=== PATIENT | female | born 1930 | race Two or more races ===

== ENCOUNTER 2017-02-24 10:53 | Outpatient (CLI) | payer MEDICARE, OTHER ==
[~2017-02-24 10:53] MED LIST: DICL50TA9 PO; DOXY100C2 PO; GABA-532 PO; GABA-534 PO; HYDR25TA4 PO; OMEP40CA37 PO; TEMA7.5C12 PO; TRAM50TA2 PO
== END 2017-02-24 23:59 | disposition home or self-care (01) ==
LOC: RAD 10:53
PROVIDERS: ATTEND Legal Medicine
DX: M47.892 Other spondylosis, cervical region (principal); M25.78 Osteophyte, vertebrae; Z88.8 Allergy status to other drugs, medicaments and biological substances
CPT/HCPCS: 72040-TC

== ENCOUNTER 2018-03-24 09:31 | Emergency (ER) | payer MEDICARE, MEDICAID ==
[~2018-03-24] VITALS: Ht 154.9 cm; Wt 67.6 kg
--- NOTE | 2018-03-24 09:48 | NUR ---
[id number] FROM HOME: LEFT ARM PAIN x 2 DAYS. DENIES RECENT FALLS/INJURIES.
[2018-03-24] MEDS ORDERED: HYDROCODONE/APAP 10/325MG 1 EA TABLET ONE (09:53)
[2018-03-24] MEDS ORDERED: HYDROCODONE/APAP 10/325MG 1 EA TABLET PO ONE (10:00)
--- NOTE | 2018-03-24 11:50 | NUR ---
CALLED [facility] FOR TRANSPORT BACK HOME, ETA 1200, TRIP #[id number]
[2018-03-24 12:07] VITALS: BP 142/81
== END 2018-03-24 12:09 | disposition home or self-care (01) ==
LOC: ER 09:33
DX: M25.422 Effusion, left elbow (principal); M19.012 Primary osteoarthritis, left shoulder; M19.022 Primary osteoarthritis, left elbow; E11.9 Type 2 diabetes mellitus without complications; I10 Essential (primary) hypertension; M85.80 Other specified disorders of bone density and structure, unspecified site; Z96.653 Presence of artificial knee joint, bilateral; Z60.2 Problems related to living alone; Z79.899 Other long term (current) drug therapy
CPT/HCPCS: 73030-TC; 73080-TC; A4606; Z7610

== ENCOUNTER 2018-10-25 15:19 | Emergency (ER) | payer MEDICARE, MEDICAID ==
[~2018-10-25] VITALS: Ht 124.5 cm; Wt 61.2 kg
--- NOTE | 2018-10-25 15:36 | NUR ---
PT BIB SELF FROM HOME, C/O BILATERAL EYE IRRITATION FROM THE HAIR DYE SOLUTION, PT IS AAOX4, NOT IN RESPIRATORY DISTRESS, KEPT RESTED AND COMFORTABLE.
[2018-10-25] MEDS ORDERED: IV NS 0.9% 1,000 ML BAG IV ONE (16:00)
[2018-10-25] MEDS ORDERED: TETRACAINE HCL/PF 0.5% UD 2 ML BOTTLE EACHEYE ONE (16:00)
[2018-10-25] MEDS ORDERED: DIPHENHYDRAMINE HCL 12.5 MG/5 ML UDC PO ONE (16:00)
[2018-10-25] MEDS ORDERED: TETRACAINE HCL/PF 0.5% UD 2 ML BOTTLE ONE (16:04)
[2018-10-25] MEDS ORDERED: diphenhydrAMINE HCL ELIX 25 MG/10 ML UDC ONE (16:05)
[2018-10-25] MEDS ORDERED: ACETAMINOPHEN ES 500 MG TABLET ONE (16:46)
[2018-10-25] MEDS ORDERED: ACETAMINOPHEN ES 500 MG TABLET PO ONE (17:00)
--- NOTE | 2018-10-25 17:05 | NUR ---
Patient discharged to home in stable condition. Written and verbal after care instructions given. Patient verbalizes understanding of instruction.
[2018-10-25 17:07] VITALS: BP 126/19
== END 2018-10-25 17:07 | disposition home or self-care (01) ==
LOC: ER 15:21
DX: H10.213 Acute toxic conjunctivitis, bilateral (principal); I10 Essential (primary) hypertension; E11.9 Type 2 diabetes mellitus without complications; Z98.890 Other specified postprocedural states; Z60.2 Problems related to living alone; Z79.899 Other long term (current) drug therapy
CPT/HCPCS: 99283; A4606; J7030 ×2; Q0163 ×2

== ENCOUNTER 2019-04-27 14:10 | Inpatient (IN) | payer MEDICARE, MEDICAID ==
[~2019-04-27] VITALS: Ht 162.6 cm; Wt 70.1 kg
--- NOTE | 2019-04-27 14:35 | NUR ---
BIB RA C/O L HIP PAIN WITH SHORTENING S/P TRIP AND FALL YESTERDAY. PATIENT A/OX3, FARSI SPEAKING, ATTACHED TO THE MONITOR. KEPT COMFORTABLE.
[2019-04-27] MEDS ORDERED: ACET-868 PO (14:42)
[2019-04-27] MEDS ORDERED: ZOLP5TAB2 PO (14:42)
[2019-04-27 14:55] LABS: BASOPHILS # (AUTO) 0.1 /CMM (0.0-0.2); BASOPHILS % (AUTO) 0.9 % (0.0-2.0); EOSINOPHILS % (AUTO) 3.1 % (0.0-6.0); HEMATOCRIT 31 % (33-45); HEMOGLOBIN 10.8 g/dL (11.5-14.8); LYMPHOCYTES # (AUTO) 0.8 /CMM (0.8-4.8); LYMPHOCYTES % (AUTO) 12.1 % (20.0-44.0); MEAN CORPUSCULAR HGB CONC 34 g/dl (31.0-36.0); MEAN CORPUSCULAR VOLUME 94 fL (82-100); MONOCYTES # (AUTO) 0.4 /CMM (0.1-1.30); MONOCYTES % (AUTO) 6.2 % (2.0-12.0); NEUTROPHILS # (AUTO) 5.2 /CMM (1.8-8.9); NEUTROPHILS % (AUTO) 77.7 % (43.0-81.0); PLATELET COUNT (AUTO) 106 /CMM (150-450); RED BLOOD CELL COUNT(AUTO) 3.33 MIL/uL (4.0-5.2); WHITE BLOOD COUNT (AUTO) 6.7 K/uL (4.3-11.0)
[2019-04-27 15:02] LABS: CALCIUM, SERUM 8.8 mg/dL (8.5-10.1); CARBON DIOXIDE 28 mmol/L (21-32); CHLORIDE 101 mmol/L (98-107); GLUCOSE 129 mg/dL (74-106); POTASSIUM 4.2 mmol/L (3.5-5.1); SODIUM SERUM 135 mmol/L (136-145); UREA NITROGEN, BLOOD 17 mg/dL (7-18)
--- NOTE | 2019-04-27 15:42 | NUR ---
FAMILY AT BEDSIDE REQUESTING FOR PATIENT TO BE TRANSFERRED TO [facility]. DR. MCINTOSH MADE AWARE.
[2019-04-27] MEDS ORDERED: MORPHINE SULFATE INJ 4 MG/ML DISP.SYRIN ONE (16:50)
--- NOTE | 2019-04-27 16:58 | NUR ---
ADMIT 322-2 M/S
[2019-04-27] MEDS ORDERED: MORPHINE SULFATE INJ 2 MG/ML DISP.SYRIN IV ONE (17:00)
--- NOTE | 2019-04-27 17:12 | NUR ---
PER BARBARA AT [facility] IF PT HAS ACCEPTING MD, THEY WILL PUT IN REQUEST FOR TRANSFER. FAXED FACESHEET TO [phone].
[2019-04-27] MEDS ORDERED: MAGNESIUM HYDROXIDE 30 ML UDC PO PRN (18:30)
[2019-04-27] MEDS ORDERED: MAG HYDROX/AL HYDROX/SIMETH 30 ML UDC PO PRN (18:30)
[2019-04-27] MEDS ORDERED: ONDANSETRON HCL/PF 4 MG/2 ML VIAL IVP PRN (18:30)
[2019-04-27] MEDS ORDERED: ACETAMINOPHEN 325 MG TABLET PO PRN (18:30)
[2019-04-27] MEDS ORDERED: ZOLPIDEM TARTRATE 5 MG TABLET PO PRN (18:30)
[2019-04-27] MEDS ORDERED: Z GUARD REMEDY 2 OZ OINT TP PRN (18:30)
--- NOTE | 2019-04-27 18:50 | NUR ---
SERA RUTH [phone]-----> TO CHEMO BELLAMY
--- NOTE | 2019-04-27 18:56 | NUR ---
REPORT GIVEN TO MARY GRACE AHUMADA.
--- NOTE | 2019-04-27 19:09 | NUR ---
DAUGHTER ILYA MADE AWARE.
--- NOTE | 2019-04-27 19:16 | NUR ---
PT WAS SENT TO TO UNIT UPON ENDORSEMENT. PT TRANSPORTED TO UNIT BY EMT AT BEDSIDE. NAD NOTED DURTING TRANSPORT.
[2019-04-27 19:20] VITALS: BP 142/67
--- NOTE | 2019-04-27 19:25 | NUR ---
CLIENT PROFESSIONAL NOTES PATIENT ARRIVED ON THE UNIT AT 1917 VIA GURNEY. VITAL SIGNS UPON ADMISSION: 142/67, P86, RESP 18, TEMP 99.0 F, O2 SAT 96%. WEIGHT 154.7. BLE EDEMA. REST OF SKIN IS INTACT. PAIN 7 OUT OF 10 ON LEFT HIP. NO ACUTE DISTRESS OR SOB NOTED. WILL CONTINUE TO MONITOR PATIENT. AWAITING ADMISSION ORDERS.
[2019-04-27 20:00] VITALS: BP 142/67
[2019-04-27] MEDS: HYDROCODONE/APAP 5/325MG 1 EACH TABLET PO PRN (21:26)
[2019-04-27] MEDS: GABAPENTIN 300 MG CAPSULE PO SCH (21:56)
--- NOTE | 2019-04-28 00:53 | NUR ---
RN CLOSING NOTES PATIENT IS RESTING IN BED, COMFORTABLY. NO ACUTE CHANGES THROUGHOUT MY SHIFT. NO SIGNS OF RESPIRATORY DISTRESS, NO SIGNS OF SOB. NO SIGNS OF FACIAL GRIMACING OR DISCOMFORT INDICATING PAIN AT THIS TIME. IV SITE ON RIGHT HAND INTACT AND PATENT. VITALS STABLE. SAFETY PRECAUTIONS IMPLEMENTED; CALL LIGHT WITHIN REACH, BED LOW, BED LOCKED, SIDE RAILS UP X2. ENDORSED CARE TO ZITA HART, FOR KIMBERLY.
--- NOTE | 2019-04-28 01:26 | NUR ---
RN OPEN NOTES RECEIVED PATIENT RESTING IN BED, EASILY AROUSABLE. A/OX4. NO SIGNS OF DISTRESS OR DISCOMFORT. BREATHING EVEN AND UNLABORED. IV ACCESS IN R HAND, PATENT AND INTACT, NO SIGNS OF REDNESS OR INFILTRATION. DENIES ANY PAIN AT THIS TIME. BED IN LOW LOCKED POSITION WITH SIDE RAILS X2. CALL LIGHT WITHIN REACH. WILL CONTINUE TO MONITOR.
[2019-04-28 06:25] LABS: ALANINE AMINOTRANSFERASE 16 U/L (12-78); ALBUMIN 3.2 g/dL (3.4-5.0); ALKALINE PHOSPHATASE 53 U/L (46-116); ASPARTATE AMINOTRANSFERASE 15 U/L (15-37); BILIRUBIN,TOTAL 0.9 mg/dL (0.2-1.0); CARBON DIOXIDE 32 mmol/L (21-32); CHLORIDE 100 mmol/L (98-107); CREATININE 0.9 mg/dL (0.6-1.3); GLUCOSE 101 mg/dL (74-106); MAGNESIUM 1.6 mg/dL (1.8-2.4); PHOSPHORUS 4.2 mg/dL (2.5-4.9); POTASSIUM 4.1 mmol/L (3.5-5.1); SODIUM SERUM 137 mmol/L (136-145); TOTAL PROTEIN, SERUM 6.1 g/dL (6.4-8.2); UREA NITROGEN, BLOOD 15 mg/dL (7-18)
[2019-04-28 06:28] LABS: CHOLESTEROL 188 mg/dL (<200); HDL CHOLESTEROL 43 mg/dL (40-60); LDL 118 mg/dL (0-99); TRIGLYCERIDES 147 mg/dL (30-150)
[2019-04-28 06:30] LABS: BASOPHILS # (AUTO) 0.1 /CMM (0.0-0.2); BASOPHILS % (AUTO) 1.1 % (0.0-2.0); EOSINOPHILS % (AUTO) 6.2 % (0.0-6.0); HEMATOCRIT 29 % (33-45); LYMPHOCYTES # (AUTO) 0.9 /CMM (0.8-4.8); LYMPHOCYTES % (AUTO) 19.3 % (20.0-44.0); MEAN CORPUSCULAR HGB CONC 35 g/dl (31.0-36.0); MEAN CORPUSCULAR VOLUME 95 fL (82-100); MONOCYTES # (AUTO) 0.4 /CMM (0.1-1.30); MONOCYTES % (AUTO) 8.1 % (2.0-12.0); NEUTROPHILS # (AUTO) 3.1 /CMM (1.8-8.9); NEUTROPHILS % (AUTO) 65.3 % (43.0-81.0); PLATELET COUNT (AUTO) 94 /CMM (150-450); RED BLOOD CELL COUNT(AUTO) 3.05 MIL/uL (4.0-5.2); WHITE BLOOD COUNT (AUTO) 4.8 K/uL (4.3-11.0)
--- NOTE | 2019-04-28 06:55 | NUR ---
RN CLOSING NOTES PATIENT AWAKE IN BED. A/OX4. NO SIGNS OF DISTRESS OR DISCOMFORT. BREATHING EVEN AND UNLABORED. STATES PAIN IN L LEG IS 8/10 BUT DENIES ANY PAIN MEDS AT THIS TIME. PT STATES SHE WANTS TO TAKE THE MED AFTER SHE HAS BREAKFAST. IV ACCESS IN R HAND, PATENT AND INTACT, NO SIGNS OF REDNESS OR INFILTRATION. ALL NEEDS MET. NO SIGNIFICANT CHANGES THROUGH THE NIGHT. BED IN LOW LOCKED POSITION WITH SIDE RAILS X2. CALL LIGHT WITHIN REACH. WILL ENDORSE TO AM SHIFT FOR KIMBERLY.
--- NOTE | 2019-04-28 07:38 | NUR ---
MS/RN OPENING NOTE PATIENT IN BED IN STABLE CONDITION. A/O X 3. NO SIGNS OF ACUTE DISTRESS. COMPLAIN OF PAIN TO LEFT LEG, PER PATIENT SHE WANTS NORCO WITH OR AFTER BREAKFAST TO AVOID UPSETTING HER STOMACH. AWAITING ORTHO CONSULT WILL FOLLOW UP. ALL NEEDS ATTENDED TO. CALL LIGHT IN REACH. WILL CONTINUE TO MONITOR TO ENSURE SAFETY.
[2019-04-28 08:00] VITALS: BP 166/74
[2019-04-28] MEDS: PANTOPRAZOLE 40 MG TABLET.DR PO SCH (08:25)
[2019-04-28] MEDS: HYDROCODONE/APAP 5/325MG 1 EACH TABLET PO PRN ×3 (08:25→20:44)
[2019-04-28 09:53] LABS: BAND % (MANUAL) 3 % (0.0-5.0); EOSINOPHILS % (MANUAL) 8 % (0-4); LYMPHOCYTES % (MANUAL) 22 % (16-48); MONOCYTES % (MANUAL) 3 % (0-11.0); NEUTROPHILS % (MANUAL) 64 (42-76)
[2019-04-28] MEDS: Magnesium 1GM/D5W 100ML PREMIX 100 ML IV SCH ×2 (11:21→12:21)
--- NOTE | 2019-04-28 12:28 | NUR ---
MS/RN SEEN BY DR MIA REICH WITH ORDER FOR VENOUS DOPPLER OF BILATERAL LOWER EXTREMITY TODAY. NOTED AND CARRIED OUT. RES AND RP AWARE.
[2019-04-28 16:00] VITALS: BP 166/72
[2019-04-28 16:37] VITALS: BP 109/73
--- NOTE | 2019-04-28 18:17 | NUR ---
MS/RN CLOSING NOTE PATIENT IN BED IN STABLE CONDITION. A/O X 4. NO SIGNS OF ACUTE DISTRESS. NO COMPLAIN OF PAIN OR DISCOMFORT. ALL NEEDS ATTENDED TO. CALL LIGHT WITHIN REACH. WILL ENDORSE TO NEXT SHIFT FOR CONTINUITY OF CARE.
--- NOTE | 2019-04-28 18:47 | NUR ---
MS/RN PATIENT FAMILY REQUESTING FOR HIP CT IMAGING TO SHOW IT TO OTHER ORTHO GROUP. SPOKE TO LUAN CHARGE NURSE PER LUAN IT'S OKAY TO PROVIDE AND ORDERED ENTER.
--- NOTE | 2019-04-28 19:10 | NUR ---
RN NOTES CT FOR HIP IMAGING CD WAS GIVEN TO FAMILY TO SHOW IT TO OTHER ORTHO GROUP. RNCAMACHO PICKED UP CD FROM RADIOLOGY AND DELIVERED IT TO FAMILY.
--- NOTE | 2019-04-28 19:35 | NUR ---
RN OPENING NOTES RECEIVED PATIENT AWAKE, RESTING IN BED COMFORTABLY. FAMILY AT BEDSIDE. A/O X 4. NO SIGNS OF RESPIRATORY DISTRESS OR DISCOMOFRT. DENIES SHORTNESS OF BREATH. IV ACCESS IN RIGHT HAND, PATENT AND INTACT. NO SIGNS OF REDNESS OR INFILTRATION NOTED. DENIES PAIN AT THIS TIME. SAFETY PRECAUTIONS IMPLEMENTED; CALL LIGHT WITHIN REACH, BED LOCKED, BED IN LOWEST POSITION, SIDE RAILS UP X2. WILL CONTINUE TO MONITOR PATIENT.
[2019-04-28 20:00] VITALS: BP 144/76
[2019-04-28] MEDS: GABAPENTIN 300 MG CAPSULE PO SCH (21:33)
--- NOTE | 2019-04-29 07:05 | NUR ---
RN CLOSING NOTES PATIENT AWAKE, RESTING IN BED COMFORTABLY. A/O X 4. NO SIGNS OF RESPIRATORY DISTRESS OR DISCOMFORT. DENIES PAIN OR DISCOMFORT AT THIS TIME. IV ACCESS IN RIGHT HAND, PATENT AND INTACT, NO SIGNS OF REDNESS OR INFILTRATION. ALL NEEDS MET AT THIS TIME. NO ACUTE CHANGES THROUGHOUT THE SPECIAL MACHINE STITCHER. SAFETY PRECAUTIONS IMPLEMENTED; CALL LIGHT WITHIN REACH, BED LOW, BED LOCKED, SIDE RAILS UP X2. WILL ENDORSE TO AM RN FOR CONTINUITY OF CARE.
--- NOTE | 2019-04-29 07:53 | NUR ---
RN MS OPENING NOTES Patient received on room air, no sob noted, patient denies pain at this time. Patient remains a/o x4, right hand #20 gauge remains patent. Patient able to use fracture bedpan. Bed at the lowest setting, call light within reach.
[2019-04-29 08:00] VITALS: BP 140/57
[2019-04-29] MEDS: PANTOPRAZOLE 40 MG TABLET.DR PO SCH (08:56)
[2019-04-29 16:00] VITALS: BP 151/77
--- NOTE | 2019-04-29 17:51 | NUR ---
RN MS CLOSING NOTES Patient remains on room air, no sob noted, patient denies pain at this time. Patient lying down comfortably on bed. Right hand #20 remains patent. Patient's bed remains at the lowest setting, call light within reach, will give report to NOC RN for KIMBERLY bedside.
--- NOTE | 2019-04-29 19:10 | NUR ---
RN MS OPENING NOTES RECEIVED PATIENT IN BED AWAKE ALERT AND ORIENTED X4, RESPIRATIONS EVEN AND UNLABORED WITH EQUAL RISE AND FALL OF CHEST, C/O PAIN TO LEFT LEG 06/02 ,OFFERED PAIN MEDICATION REQUESTING TO TAKE AT 1999. PICKRELL OFFERED PATIENT AGREED, IV SITE TO RIGHT HAND #20G INTACT AND PATENT, NO REDNESS, NO INFILTRATION SL. ORIENTED TO STAFF AND CALL LIGHT AND KEPT WITHIN REACH, SAFETY PRECAUTIONS IN PLACE, FLUIDS OFFERED, BOTH HEELS ELEVATED WITH PILLOWS, HEELS ASSESSED INTACT , NO REDNESS, BED WILLIS OFFERED AND USED VOIDED X1. URINE YELLOW ALL NEEDS ATTENDED AT THIS TIME, WILL CONTINUE TO MONITOR.
[2019-04-29] MEDS: HYDROCODONE/APAP 5/325MG 1 EACH TABLET PO PRN (19:58)
--- NOTE | 2019-04-29 19:58 | NUR ---
RN MS NOTES PATIENT COMPLAINT OF PAIN TO LEFT LEG 7/10 ACHING, FACIAL GRIMACING PRESENT NORCO PRN PAIN MEDICATION DISCUSSED WITH PATIENT , OFFERED AND GIVEN ORDERED, VS WNL 155/89,20,108,96% RA, AFEBRILE. WILL CONTINUE TO MONITOR FOR EFFECTIVENESS, LEFT LEG SLIGHTLY REPOSITIONED FOR COMFORT HEELS FLOATING WITH PILLOW. WILL CONTINUE TO MONITOR.
[2019-04-29 20:00] VITALS: BP 155/89
[2019-04-29] MEDS: GABAPENTIN 300 MG CAPSULE PO SCH (21:10)
--- NOTE | 2019-04-29 22:00 | NUR ---
RN MS NOTES PATIENT APPEARS COMFORTABLE AT THIS TIME, SLEEPING.
[2019-04-30] MEDS: HYDROCODONE/APAP 5/325MG 1 EACH TABLET PO PRN ×3 (06:28→18:50)
--- NOTE | 2019-04-30 06:28 | NUR ---
rn ms notes patient repositioned offered bed patiño had x1 small bm , sacral skin remains intact no redness, also patient states 10/10 pain to left leg requesting for pain medication norco prn offered patient agreed and given vs assessed and noted vs change related to pain noted b/p 190/91 HR 90, per patient "too much pain", will continue to monitor b/p and effectiveness of pain medication. all needs attended at this time.
--- NOTE | 2019-04-30 07:20 | NUR ---
RN MS CLOSING NOTES PATIENT IN BED AWAKE ALERT AND ORIENTED X4, RESPIRATIONS EVEN AND UNLABORED WITH EQUAL RISE AND FALL OF CHEST, C/O PAIN TO LEFT LEG / ,OFFERED PAIN MEDICATION NITZA UPON REASSESSMENT STATES "MEDICATION IS GOOD" PAIN DECREASED DENIES PAIN AT THIS TIME. MEDICATION EFFECTIVE. IV SITE TO RIGHT HAND #20G INTACT AND PATENT, NO REDNESS, NO INFILTRATION SL.CALL LIGHT KEPT WITHIN REACH, SAFETY PRECAUTIONS IN PLACE, FLUIDS OFFERED, BOTH HEELS ELEVATED WITH PILLOWS, HEELS ASSESSED INTACT , SACRAL ASSESSED INTACT NO REDNESS, BED WILLIS OFFERED AND USED BMX 1. URINE YELLOW ALL NEEDS ATTENDED AT THIS TIME, WILL CONTINUE TO MONITOR AND ENDORSE TO NEXT SHIFT.
--- NOTE | 2019-04-30 07:30 | NUR ---
RN MS AM NOTES RECEIVED PATIENT IN BED, AWAKE ALERT AND ORIENTED X4, ON ROOM AIR, RESPIRATIONS EVEN AND UNLABORED, C/O PAIN TO LEFT LEG 4/10, TOLERABLE, PAIN MEDICATION GIVEN AWHILE AGO.TO RIGHT HAND #20G IVHL, FLUSHES WELL, SITE CLEAR. DAUGHTER/CAREGIVER AT BEDSIDE. CALL LIGHT AND KEPT WITHIN REACH, SAFETY PRECAUTIONS IN PLACE, BOTH HEELS ELEVATED WITH PILLOWS, HEELS ASSESSED INTACT , NO REDNESS, BED WILLIS OFFERED AND USED VOIDED X1. BED LOW LOCKED, SAFETY MEASURES IN PLACE. POC DISCUSSED. WILL CONTINUE TO MONITOR.
[2019-04-30 08:00] VITALS: BP_SYST 170; BP_SYST 173; BP_DIAS 74
[2019-04-30] MEDS: PANTOPRAZOLE 40 MG TABLET.DR PO SCH (08:36)
[2019-04-30 09:00] VITALS: BP 140/72
--- NOTE | 2019-04-30 09:30 | NUR ---
MS RN NOTES DUE MEDS GIVEN
--- NOTE | 2019-04-30 14:02 | NUR ---
MS RN NOTES KNEE IMMOBILIZER IN PLACE BY PHYSICAL THERAPIST
[2019-04-30 16:00] VITALS: BP_SYST 147; BP_SYST 160; BP_SYST 161; BP_DIAS 72; BP_DIAS 76
[2019-04-30 20:00] VITALS: BP 144/86
--- NOTE | 2019-04-30 20:07 | NUR ---
MS RN NOTES RECEIVED PATIENT AWAKE IN BED WITH NO DISTRESS NOTED. CALL LIGHT WITHIN REACH. NO FURTHER C/O PAIN OR DISCOMFORT. NO C/O LLE NUMBNESS OR TINGLING. PERIPHERAL LINE INTACT AND PATENT. ENCOURAGED USE OF CALL LIGHT FOR ASSISTANCE AND DEMONSTRATED GOOD UNDERSTANDING. BED IN LOW LOCK SETTING. ROOM FREE OF CLUTTER AND BELONGINGS KEPT NEAR BEDSIDE. WILL CONTINUE TO MONITOR.
[2019-04-30] MEDS: GABAPENTIN 300 MG CAPSULE PO SCH (21:49)
--- NOTE | 2019-05-01 06:45 | NUR ---
MS RN NOTES PATIENT ASLEEP IN BED WITH NO DISTRESS NOTED. CALL LIGHT WITHIN REACH. ALL DUE MEDS GIVEN ORDERED WITH NO ASE NOTED. NO FURTHER C/O PAIN OR DISCOMFORT. PERIPHERAL LINE INTACT AND PATENT. BED IN LOW LOCK SETTING. WILL ENDORSE TO ONCOMING SHIFT.
--- NOTE | 2019-05-01 07:30 | NUR ---
RN AM SHIFT NOTE PATIENT ALERT AND ORIENTED, SPEAKS BURKINAN AND ARABIC. PATIENT IS ABLE TO ASSIST WITH BEDPAN AT BEDSIDE. IV PATENT AND INTACT. PATIENT CALL LIGHT WITHIN REACH, SIDE RAILS UP. AWAITING PLACEMENT AND POSSIBLE DISCHARGE ORDER FROM MD. PATIENT REFUSED SURGERY, ORTHO SAW PATIENT, NO SURGERY AT THIS TIME.
[2019-05-01 08:00] VITALS: BP 163/89
[2019-05-01] MEDS: PANTOPRAZOLE 40 MG TABLET.DR PO SCH (08:20)
[2019-05-01] MEDS: HYDROCODONE/APAP 5/325MG 1 EACH TABLET PO PRN ×2 (08:20→14:37)
--- NOTE | 2019-05-01 11:02 | NUR ---
RN NOTE [facility] WILL NOT ACCEPT THE PATIENT TO HOSPITAL AT THIS TIME. [facility] WILL NOT ACCEPT PATIENT AT THIS TIME. CASE MANAGMENT INFORMED NURSE THAT [facility] MAY TAKE PATIENT. AWAITING NEW ORDERS FROM HOSPITALIST AND OR MD FOR NEW ORDERS AND D/C ORDER. RN CALLED DAUGHTER, DAUGHTER IS AWARE OF PATIENTS CONDITION AND TRANSFER OPTIONS. RN FORWARDED DAUGHTERS CELL TO HOSPITALIST AT REQUEST OF FAMILY. WANTS TO SPEAK DIRETLY TO MD. SAFETY MEASURES IN PLACE, CALL LIGHT WITHIN REACH. NO NEW ORDERS FOR ELEVATED BP 163/89.
[2019-05-01 16:00] VITALS: BP 161/86
--- NOTE | 2019-05-01 19:34 | NUR ---
MS RN RECEIVE PT IN BED WATCHING TV A/O X 4, STABLE, RESPIRATIONS EVEN AND UNLABORED, SAFETY MEASURES IN PLACE. WILL CONTINUE TO MONITOR
[2019-05-01 20:00] VITALS: BP 152/87
[2019-05-01] MEDS: GABAPENTIN 300 MG CAPSULE PO SCH (21:11)
--- NOTE | 2019-05-02 06:15 | NUR ---
MS RN ASLEEP AND EASILY AWAKEN, RESPIRATIONS EVEN AND UNLABORED. SLEPT WELL THROUGHOUT THE NIGHT. WBAT RLE, KEPT CLEAN AND DRY AND COMFORTABLE. NEEDS ATTENDED AND ANTICIPATED, NURSING CARE RENDERED. NO C/O OF PAIN. ASSISTED REPOSITION Q2H. SAFETY MEASURES AT ALL TIMES. ENDORSE TO THE NEXT SHIFT. Addendum: 05/02/19 at 0618 by JUAN CARLOS HOPE RN OFFLOAD HEELS AND ELBOWS AT ALL TIMES
--- NOTE | 2019-05-02 07:35 | NUR ---
MS RN OPENING NOTES PATIENT IN BED RESTING, AWAKE, ALERT AND ORIENTEDX4. PATIENT ABLE TO VERBALIZE NEEDS. PATIENT BREATHING ON ROOM AIR >95% SPO2. PATIENT BREATHING IS EVEN AND UNLABORED. PATIENT IN NO ACUTE DISTRESS. NO SOB NOTED. NO FACIAL GRIMACING NOTED. PATIENT BED IS LOCKED AND IN LOWEST POSITION. CALL LIGHT WITHIN REACH. SAFETY PRECAUTIONS IN PLACE. WILL CONTINUE TO MONITOR.
[2019-05-02 08:00] VITALS: BP 169/89
[2019-05-02] MEDS: HYDROCODONE/APAP 5/325MG 1 EACH TABLET PO PRN ×2 (08:01→13:59)
[2019-05-02] MEDS: PANTOPRAZOLE 40 MG TABLET.DR PO SCH (08:01)
[2019-05-02] MEDS ORDERED: HYDR-3972 PO (11:16)
[2019-05-02] MEDS ORDERED: MAGN400O6 PO (11:16)
[2019-05-02] MEDS ORDERED: PANT40TA2 PO (11:16)
[2019-05-02] MEDS ORDERED: ALLA266C2 TP (11:16)
[2019-05-02] MEDS ORDERED: MAG30ORA PO (11:16)
[2019-05-02] MEDS ORDERED: HYDROCODONE/APAP 5/325MG 1 EACH TABLET PO ONE (11:30)
[2019-05-02 16:49] VITALS: BP 190/78
[2019-05-02] MEDS ORDERED: CLONIDINE HCL 0.1 MG TABLET PO ONE (17:00)
--- NOTE | 2019-05-02 17:28 | NUR ---
MS ALLERGIST IMMUNOLOGIST NOTE PATIENT STABLE AND READY FOR DISCHARGE. PATIENT VITAL SIGNS WNL. PATIENT BREATHING ON ROOM AIR SATURATING >95% SPO2. PATIENT IN NO ACUTE DISTRESS. NO SOB NOTED. BREATHING WAS EVEN AND UNLABORED. DC INSTRUCTIONS PROVIDED. PATIENT VERBALIZED UNDERSTANDING. PATIENT GOING TO [facility]. PATIENT IV IS REMOVED. PATIENT ID BANDS REMOVED. PATIENT KEPT CLEAN, DRY , AND COMFORTABLE DURING MY SHIFT. PATIENT VERBALIZED NEEDS. NEEDS WERE ADDRESSED. PATIENT SIGNED BELONGINGS LIST, HAS ALL BELONGINGS WITH PATIENT. SKIN ASSESSED,NO NEW SKIN BREAKDOWN NOTED. GAVE REPORT TO JOSÉ AHUMADA AT [facility]. GAVE REPORT TO EMT. MD AWARE OF DISCHARGE.
== END 2019-05-02 17:30 | DRG 534 ==
LOC: ER 14:15 → MED 17:17
PROVIDERS: ADMIT Nurse Practitioner Acute Care; ATTEND Registered Nurse
DX: S72.412A Displaced unspecified condyle fracture of lower end of left femur, initial encounter for closed fracture (principal); D68.69 Other thrombophilia; M86.60 Other chronic osteomyelitis, unspecified site; W01.0XXA Fall on same level from slipping, tripping and stumbling without subsequent striking against object, initial encounter; D63.8 Anemia in other chronic diseases classified elsewhere; E11.69 Type 2 diabetes mellitus with other specified complication; I10 Essential (primary) hypertension; D69.6 Thrombocytopenia, unspecified; Y93.9 Activity, unspecified; Y92.002 Bathroom of unspecified non-institutional (private) residence as the place of occurrence of the external cause; Z96.651 Presence of right artificial knee joint; Z96.641 Presence of right artificial hip joint; M25.562 Pain in left knee
CPT/HCPCS: 36415; 71045-TC; 73502; 73552; 73560-TC; 73700-TC; 80048-TC; 80053-TC; 80061-TC; 83735-TC; 84100-TC; 85025-TC; 85730-TC; 87081-TC; 93970-TC; 97110-TC; 97112-TC; 97530-TC; G0378; J2270; J2405; J3475; J7050

== ENCOUNTER 2019-05-24 09:59 | Emergency (ER) | payer MEDICARE, MEDICAID ==
[~2019-05-24] VITALS: Ht 152.4 cm; Wt 67.6 kg
[~2019-05-24 09:59] MED LIST changes: +ACET-868 PO; +ALLA266C2 TP; -DICL50TA9 PO; -DOXY100C2 PO; -GABA-532 PO; +HYDR-3972 PO; -HYDR25TA4 PO; +MAG30ORA PO; +MAGN400O6 PO; -OMEP40CA37 PO; +PANT40TA2 PO; -TEMA7.5C12 PO; -TRAM50TA2 PO; +ZOLP5TAB2 PO
--- NOTE | 2019-05-24 10:04 | NUR ---
PT [id number] FRM HOME FOR N/V/D, UNABLE TO KEEP FOOD/FLUID DOWN X 5 DAYS, PT IS AAOX4, NOT IN RESPIRATORY DISTRESS, HOOKED TO MONITOR, KEPT RESTED AND COMFORTABLE, WILL CONTINUE TO MONITOR.
--- NOTE | 2019-05-24 10:06 | NUR ---
SEEN AND EXAMINED BY DR. LERNER.
[2019-05-24] MEDS ORDERED: ONDANSETRON HCL/PF 4 MG/2 ML VIAL ONE (10:17)
[2019-05-24] MEDS ORDERED: FAMOTIDINE/PF INJ 20 MG/2 ML VIAL IV ONE ×2 (10:17→10:30)
--- NOTE | 2019-05-24 10:20 | NUR ---
IV LINE ESTABLISHED, BLOOD DRAWNED AND SENT TO LAB.
[2019-05-24 10:24] LABS: BASOPHILS # (AUTO) 0.1 /CMM (0.0-0.2); BASOPHILS % (AUTO) 1.3 % (0.0-2.0); EOSINOPHILS % (AUTO) 2.7 % (0.0-6.0); HEMATOCRIT 33 % (33-45); HEMOGLOBIN 11.4 g/dL (11.5-14.8); LYMPHOCYTES # (AUTO) 0.8 /CMM (0.8-4.8); LYMPHOCYTES % (AUTO) 15.9 % (20.0-44.0); MEAN CORPUSCULAR HGB CONC 34 g/dl (31.0-36.0); MEAN CORPUSCULAR VOLUME 93 fL (82-100); MONOCYTES # (AUTO) 0.3 /CMM (0.1-1.30); MONOCYTES % (AUTO) 5.9 % (2.0-12.0); NEUTROPHILS # (AUTO) 3.6 /CMM (1.8-8.9); NEUTROPHILS % (AUTO) 74.2 % (43.0-81.0); PLATELET COUNT (AUTO) 158 /CMM (150-450); RED BLOOD CELL COUNT(AUTO) 3.58 MIL/uL (4.0-5.2); WHITE BLOOD COUNT (AUTO) 4.8 K/uL (4.3-11.0)
[2019-05-24 10:29] LABS: CALCIUM, SERUM 9.6 mg/dL (8.5-10.1); CARBON DIOXIDE 29 mmol/L (21-32); CHLORIDE 96 mmol/L (98-107); CREATININE 0.9 mg/dL (0.6-1.3); GLUCOSE 107 mg/dL (74-106); POTASSIUM 3.8 mmol/L (3.5-5.1); SODIUM SERUM 133 mmol/L (136-145); UREA NITROGEN, BLOOD 11 mg/dL (7-18)
[2019-05-24] MEDS ORDERED: ONDANSETRON HCL/PF 4 MG/2 ML VIAL IVP ONE (10:30)
[2019-05-24] MEDS ORDERED: IV NS 0.9% 1,000 ML BAG IV ONE (10:30)
[2019-05-24 10:35] LABS: ALANINE AMINOTRANSFERASE 16 U/L (12-78); ALBUMIN 3.9 g/dL (3.4-5.0); ALKALINE PHOSPHATASE 136 U/L (46-116); ASPARTATE AMINOTRANSFERASE 20 U/L (15-37); BILIRUBIN,DIRECT 0.2 mg/dL (0.0-0.2); BILIRUBIN,TOTAL 0.8 mg/dL (0.2-1.0); LIPASE 56 U/L (73-393); TOTAL PROTEIN, SERUM 7.5 g/dL (6.4-8.2)
--- NOTE | 2019-05-24 11:47 | NUR ---
IV removed. Catheter intact and site benign. Pressure and 4x4 applied to site. No bleeding noted. Patient discharged to home in stable condition. Written and verbal after care instructions given. Patient verbalizes understanding of instruction.
[2019-05-24 11:48] VITALS: BP 143/84
== END 2019-05-24 11:49 | disposition home or self-care (01) ==
LOC: ER 10:04
DX: K52.9 Noninfective gastroenteritis and colitis, unspecified (principal); I10 Essential (primary) hypertension; E11.9 Type 2 diabetes mellitus without complications; Z98.890 Other specified postprocedural states; Z60.2 Problems related to living alone; Z79.899 Other long term (current) drug therapy
CPT/HCPCS: 36415; 71045; 80048; 80076; 83690; 84484; 85025; 96361; 96374; 96375; 99284; J2405; J3490; J7030

== ENCOUNTER 2020-02-01 20:51 | Inpatient (IN) | payer MEDICARE, OTHER ==
[~2020-02-01] VITALS: Ht 149.9 cm; Wt 61.3 kg
--- NOTE | 2020-02-01 21:00 | NUR ---
PT BIBRA 88 FROM HOME C/O MORE ALTERED THAN USUAL PER REPORT, PT IS AAOX23, NOT IN RESPIRATORY DISTRESS, HOOKED TO WASHROOM CLEANER, KEPT RESTED AND COMFORTABLE, AWAITING ER MD FOR EVAL.
--- NOTE | 2020-02-01 21:10 | NUR ---
IV LINE ESTABLISHED, BLOOD DRAWN AND SENT TO LAB.
--- NOTE | 2020-02-01 21:14 | NUR ---
EMT AT BEDSIDE FOR EKG
[2020-02-01 22:07] LABS: BASOPHILS % (AUTO) 0.3 % (0.0-2.0); HEMATOCRIT 34 % (33-45); HEMOGLOBIN 11.5 g/dL (11.5-14.8); LYMPHOCYTES # (AUTO) 0.7 /CMM (0.8-4.8); LYMPHOCYTES % (AUTO) 19.7 % (20.0-44.0); MEAN CORPUSCULAR HGB CONC 34 g/dl (31.0-36.0); MEAN CORPUSCULAR VOLUME 90 fL (82-100); MONOCYTES # (AUTO) 0.3 /CMM (0.1-1.30); MONOCYTES % (AUTO) 8.1 % (2.0-12.0); NEUTROPHILS # (AUTO) 2.6 /CMM (1.8-8.9); NEUTROPHILS % (AUTO) 71.9 % (43.0-81.0); PLATELET COUNT (AUTO) 170 /CMM (150-450); RED BLOOD CELL COUNT(AUTO) 3.79 MIL/uL (4.0-5.2); WHITE BLOOD COUNT (AUTO) 3.7 K/uL (4.3-11.0)
[2020-02-01 22:08] LABS: APPEARANCE,URINE Clear (CLEAR); BILIRUBIN,URINE Negative (NEGATIVE); BLOOD, URINE Negative Ery/uL (NEGATIVE); COLOR,URINE Yellow (YELLOW); KETONES,URINE Negative (NEGATIVE); LEUKOCYTE ESTERASE ,URINE Small (NEGATIVE); NITRITE, URINE Negative (NEGATIVE); PROTEIN,URINE 100 mg/dl (NEGATIVE); UGLUCOSE Negative (NEGATIVE)
[2020-02-01 22:19] LABS: CALCIUM, SERUM 8.6 mg/dL (8.5-10.1); CARBON DIOXIDE 31 mmol/L (21-32); CHLORIDE 94 mmol/L (98-107); GLUCOSE 110 mg/dL (74-106); POTASSIUM 3.7 mmol/L (3.5-5.1); SODIUM SERUM 131 mmol/L (136-145); UREA NITROGEN, BLOOD 30 mg/dL (7-18)
--- NOTE | 2020-02-01 22:23 | NUR ---
PT RESTING IN BED COMFORTABLY. ON 2L NC SAT AT 97.
[2020-02-01 22:25] LABS: ALANINE AMINOTRANSFERASE 26 U/L (12-78); ALBUMIN 3.4 g/dL (3.4-5.0); ALKALINE PHOSPHATASE 51 U/L (46-116); ASPARTATE AMINOTRANSFERASE 48 U/L (15-37); BILIRUBIN,DIRECT 0.2 mg/dL (0.0-0.2); BILIRUBIN,TOTAL 0.9 mg/dL (0.2-1.0); TOTAL PROTEIN, SERUM 7.2 g/dL (6.4-8.2)
[2020-02-01 22:26] LABS: BACTERIA,URINE Many /HPF (None Seen); RBC,URINE 0-2 /HPF (0-2); SQUAMOUS EPITHELIAL CELL,UR M /HPF (None Seen)
[2020-02-01] MEDS ORDERED: IV NS 0.9% 1,000 ML IV STA (22:27)
--- NOTE | 2020-02-01 22:29 | NUR ---
XRAY AT BEDSIDE
[2020-02-01] MEDS ORDERED: IV NS 0.9% 1,000 ML IV PRN (22:30)
--- NOTE | 2020-02-01 23:05 | NUR ---
ELIDIA MIRAMONTES NP
--- NOTE | 2020-02-01 23:07 | NUR ---
Patient is resting comfortably in bed. Easily aroused. VSS.
--- NOTE | 2020-02-01 23:18 | NUR ---
CALLED CHEMO MIRAMONTES NP
--- NOTE | 2020-02-01 23:50 | NUR ---
REPORT GIVEN FOR KIMBERLY
--- NOTE | 2020-02-01 23:56 | NUR ---
SPEAKING TO CLEMENTE MIRAMONTES FILM CREW MEMBER
[2020-02-02] MEDS ORDERED: CEFEPIME 1 GM in IV NS 0.9% 50 ML IV SCH ×2
[2020-02-02] MEDS ORDERED: CEFEPIME 1 GM VIAL ONE (00:03)
--- NOTE | 2020-02-02 00:19 | NUR ---
PT TRANSFERED BY EMT.
[2020-02-02 00:30] VITALS: BP 152/83
[2020-02-02 01:00] VITALS: BP 152/83
[2020-02-02] MEDS ORDERED: MAGNESIUM HYDROXIDE 30 ML UDC PO PRN (01:00)
[2020-02-02] MEDS ORDERED: Z GUARD REMEDY 2 OZ OINT TP PRN (01:00)
[2020-02-02] MEDS ORDERED: MAG HYDROX/AL HYDROX/SIMETH 30 ML UDC PO PRN (01:00)
[2020-02-02] MEDS ORDERED: DEXTROSE 50%-WATER 50 ML DISP.SYRIN IV PRN (01:00)
--- NOTE | 2020-02-02 01:00 | NUR ---
RECEIVE PT FROM [facility] PT A/O X 2, ABLE TO MAKE NEEDS KNOWN. ADMIT TO MEDSURG UNIT, RESPIRATIONS EVEN AND UNLABORED. STABLE AND NOT IN DISTRESS, KEPT CLEAN AND DRY, COMFORT. WILL CONT TO MONITOR
[2020-02-02] MEDS: IV NS 0.9% 1,000 ML IV PRN ×2 (02:24→18:15)
[2020-02-02] MEDS: INSULIN REGULAR, HUMAN 100 UNIT/ML 3 ML VIAL SQ PRN (05:56)
[2020-02-02] MEDS: BLOOD SUGAR DIAGNOSTIC 1 EACH STRIP IN SCH ×4 (05:56→21:57)
--- NOTE | 2020-02-02 06:14 | NUR ---
SLEPT WELL, PT STABLE AND NOT IN DISTRESS, ALL NEEDS ATTENDED AND ANTICIPATED, KEPT CLEAN, DRY AND COMFORTABLE. AM CARE RENDERED, REPOSITION EVERY 2 HOURS, SAFETY MEASURES AT ALL TIMES. WILL ENDORSE TO NEXT SHIFT POC.
[2020-02-02 08:00] VITALS: BP 136/60
--- NOTE | 2020-02-02 08:00 | NUR ---
MS RN OPENING NOTES Received Patient awake and resting in bed. A/O x 2. VS stable with no acute distress. Breathing even and unlabored on 2LPM via NC with no acute distress. Denies pain. No signs and symptoms of pain. 18g PIV on LAC intact, patent and flushing well with NS infusing at 75ml/hr. Safety precautions in place. Bed locked and set to lowest position with side rails x 3 up. All needs rendered at this time. Call light within reach. Will continue to monitor.
[2020-02-02] MEDS ORDERED: LOSA1TAB42 PO (08:33)
[2020-02-02] MEDS ORDERED: TOLT2CAP PO (08:33)
[2020-02-02] MEDS ORDERED: HYDR-500 PO (08:33)
[2020-02-02] MEDS ORDERED: TRIA1TAB3 PO (08:33)
[2020-02-02] MEDS ORDERED: GABA-534 PO (08:33)
--- NOTE | 2020-02-02 08:35 | NUR ---
SLOT AMBASSADOR/MED RCON PARTIAL HOME MEDICATION INFO OBTAINED FROM ILYA (DAUGHTER). PER DAUGHTER, WILL CALL LATER TO PROVIDE UPDATED/COMPLETE INFORMATION. PRIMARY RN AWARE.
[2020-02-02] MEDS: ACETAMINOPHEN 325 MG TABLET PO PRN ×3 (08:55→21:57)
--- NOTE | 2020-02-02 08:55 | NUR ---
MS RN NOTES Temp 99.6F Administered Tylenol 650mg PO at this time. Patient comfortable and in stable condition. Will continue to monitor.
[2020-02-02 09:35] LABS: BASOPHILS % (AUTO) 0.3 % (0.0-2.0); EOSINOPHILS % (AUTO) 0.1 % (0.0-6.0); HEMATOCRIT 32 % (33-45); HEMOGLOBIN 10.8 g/dL (11.5-14.8); LYMPHOCYTES # (AUTO) 0.6 /CMM (0.8-4.8); LYMPHOCYTES % (AUTO) 17.6 % (20.0-44.0); MEAN CORPUSCULAR HGB CONC 34 g/dl (31.0-36.0); MEAN CORPUSCULAR VOLUME 90 fL (82-100); MONOCYTES # (AUTO) 0.2 /CMM (0.1-1.30); MONOCYTES % (AUTO) 4.9 % (2.0-12.0); NEUTROPHILS # (AUTO) 2.6 /CMM (1.8-8.9); NEUTROPHILS % (AUTO) 77.1 % (43.0-81.0); PLATELET COUNT (AUTO) 145 /CMM (150-450); RED BLOOD CELL COUNT(AUTO) 3.54 MIL/uL (4.0-5.2); WHITE BLOOD COUNT (AUTO) 3.4 K/uL (4.3-11.0)
[2020-02-02 09:47] LABS: CALCIUM, SERUM 8.3 mg/dL (8.5-10.1); CARBON DIOXIDE 27 mmol/L (21-32); CHLORIDE 98 mmol/L (98-107); CREATININE 1.8 mg/dL (0.6-1.3); GLUCOSE 120 mg/dL (74-106); MAGNESIUM 1.8 mg/dL (1.8-2.4); PHOSPHORUS 3.4 mg/dL (2.5-4.9); POTASSIUM 3.1 mmol/L (3.5-5.1); SODIUM SERUM 133 mmol/L (136-145); UREA NITROGEN, BLOOD 29 mg/dL (7-18)
[2020-02-02 09:58] LABS: CHOLESTEROL 144 mg/dL (<200); HDL CHOLESTEROL 37 mg/dL (40-60); LDL 86 mg/dL (0-99); THYROID STIMULATING HORMONE 2.462 uIU/mL (0.358-3.74); TRIGLYCERIDES 134 mg/dL (30-150)
--- NOTE | 2020-02-02 11:12 | NUR ---
MS RN NOTES Per Tahnia FERMIN, collect specimen for COVID. Isolation precautions in place. Patient in stable condition. All needs rendered at this time. Will continue to monitor.
--- NOTE | 2020-02-02 12:11 | NUR ---
MS RN NOTES Dropped off collected COVID specimen to lab at this time. Patient refused accucheck. Patient upset about COVID specimen collection and refuses any more care. Otherwise Patient in stable condition and eating lunch. Will continue to monitor.
[2020-02-02] MEDS ORDERED: POTASSIUM CHLORIDE 10 MEQ TABLET.SA PO SCH (12:30)
[2020-02-02 12:39] LABS: C-REACTIVE PROTEIN 10.5 mg/dL (0.0-0.9)
[2020-02-02 16:00] VITALS: BP 137/71
--- NOTE | 2020-02-02 19:05 | NUR ---
MS RN NOTES Received pt in bed awake and resting in bed. A/O x 2. Respirations even and unlabored with no s/s of acute distress or sob noted. Pt denies pain. No signs and symptoms of pain. pt with 18g PIV on LAC intact, patent and flushing well with NS infusing at 75ml/hr. Safety measures in place with bed in lowest locked position with side rails up x2. call light within reach. Will continue to monitor.
--- NOTE | 2020-02-02 19:50 | NUR ---
MS RN CLOSING NOTES Patient resting in bed. A/O x 2. VS stable with no acute distress. Breathing even and unlabored on room air with no respiratory distress. Denies pain. No signs and symptoms of pain. 18g PIV on LAC intact, patent and flushing well with NS infusing at 75ml/hr. Isolation precautions in place. Safety precautions in place. Bed locked and set to lowest position with side rails x 3 up. All needs rendered at this time. Call light within reach. Will endorse plan of care to oncoming shift.
[2020-02-02 20:00] VITALS: BP 130/78
--- NOTE | 2020-02-02 22:30 | NUR ---
MS RN NOTES PT NOTED WITH ELEVATED TEMP, COOLING MEASURES INITIATED ALONG WITH TYLENOL. MD MADE AWARE WITH NO NEW ORDERS BUT TO CONTINUE TO MONITOR.
[2020-02-03 06:54] LABS: BASOPHILS % (AUTO) 0.5 % (0.0-2.0); EOSINOPHILS % (AUTO) 0.6 % (0.0-6.0); HEMATOCRIT 32 % (33-45); HEMOGLOBIN 10.8 g/dL (11.5-14.8); LYMPHOCYTES % (AUTO) 19.3 % (20.0-44.0); MEAN CORPUSCULAR HGB CONC 34 g/dl (31.0-36.0); MEAN CORPUSCULAR VOLUME 90 fL (82-100); MONOCYTES # (AUTO) 0.2 /CMM (0.1-1.30); MONOCYTES % (AUTO) 4.2 % (2.0-12.0); NEUTROPHILS % (AUTO) 75.4 % (43.0-81.0); RED BLOOD CELL COUNT(AUTO) 3.53 MIL/uL (4.0-5.2); WHITE BLOOD COUNT (AUTO) 5.3 K/uL (4.3-11.0)
[2020-02-03 07:15] LABS: PLATELET COUNT (AUTO) 162 /CMM (150-450)
--- NOTE | 2020-02-03 07:30 | NUR ---
RN OPENING NOTES RECEIVED PT IN BED, AWAKE, A/O X3. PT ON SUPPLEMENTARY 2LPM VIA NC, WITH NO ACUTE RESPIRATORY DISTRESS NOTED. PT DENIES ANY PAIN OR DISCOMFORT AT THIS TIME. IVF NS AT 75ML/HR TO LAC G18, INTACT AND OPERATIONAL. PT KEPT COMFORTABLE IN BED. CALL LIGHT KEPT WITHIN REACH. HOB ELEVATED. PT'S BED IN LOWEST, LOCKED POSITION WITH SRX3. WILL CONTINUE PLAN OF CARE.
[2020-02-03] MEDS: BLOOD SUGAR DIAGNOSTIC 1 EACH STRIP IN SCH ×4 (07:34→21:14)
[2020-02-03 07:38] LABS: CALCIUM, SERUM 8.4 mg/dL (8.5-10.1); CARBON DIOXIDE 25 mmol/L (21-32); CHLORIDE 99 mmol/L (98-107); CREATININE 1.4 mg/dL (0.6-1.3); GLUCOSE 100 mg/dL (74-106); MAGNESIUM 1.7 mg/dL (1.8-2.4); PHOSPHORUS 3.2 mg/dL (2.5-4.9); POTASSIUM 3.4 mmol/L (3.5-5.1); SODIUM SERUM 133 mmol/L (136-145); UREA NITROGEN, BLOOD 24 mg/dL (7-18)
[2020-02-03 08:00] VITALS: BP 143/73
[2020-02-03] MEDS: ACETAMINOPHEN 325 MG TABLET PO PRN ×2 (08:59→17:28)
[2020-02-03] MEDS: Magnesium 1GM/D5W 100ML PREMIX 100 ML IV SCH ×2 (09:00→10:26)
[2020-02-03] MEDS: POTASSIUM CHLORIDE 20 MEQ TAB.PRT.SR PO SCH ×3 (09:00→10:26)
--- NOTE | 2020-02-03 10:30 | NUR ---
RN NOTES PT REFUSED BREAKFAST. ENCOURAGED SNACKS. APOKE TO SON AND UPDATED WITH PT'S REFUSAL FOR BREAKFAST. SON TALKED TO PT IN [facility] VIA PHONE AND GAVE ENCOURAGEMENT. WILL CONTINUE TO MONITOR.
--- NOTE | 2020-02-03 13:30 | NUR ---
RN NOTES PT ATE 20-25% FOR LUNCH. WILL CONTINUE TO MONITOR.
[2020-02-03 16:00] VITALS: BP 137/75
--- NOTE | 2020-02-03 18:16 | NUR ---
RN NOTES PT REFUSED TO HAVE DINNER AGAIN, STATING HAS POOR APPETITE. WILL ENDORSE TO INCOMING NIGHT NURSE WELL.
--- NOTE | 2020-02-03 18:43 | NUR ---
RIGGING SLINGER CLOSING NOTES RECEIVED PT IN BED, AWAKE, A/O X3. PT ON SUPPLEMENTARY 2LPM VIA NC, WITH NO ACUTE RESPIRATORY DISTRESS NOTED. PT DENIES ANY PAIN OR DISCOMFORT AT THIS TIME. IVF NS AT 75ML/HR TO L WRIST G22, INTACT AND OPERATIONAL. PT KEPT COMFORTABLE IN BED. ALL NEEDS AND CARE ATTENDED. CALL LIGHT KEPT WITHIN REACH. HOB ELEVATED. PT'S BED IN LOWEST, LOCKED POSITION WITH SRX3. WILL ENDORSE TO NIGHT NURSE FOR KIMBERLY.
--- NOTE | 2020-02-03 19:05 | NUR ---
MACHINE STONE POLISHER OPENING NOTES RECEIVED PATIENT IN BED AWAKE ALERT AND ORIENTED X2, ABLE TO MAKE NEEDS, KNOWN, RESPIRATIONS EVEN AND UNLABORED WITH EQUAL RISE AND FALL OF CHEST, ON 1L VIA NC,DENIES ANY PAIN OR DISCOMFORT AT THIS TIME, IV SITE TO LEFT WRIST #22 G INTACT AND PATENT, IVF RUNNING ORDERED. ORIENTED TO STAFF AND CALL LIGHT AND KEPT WITHIN REACH, SAFETY PRECAUTIONS IN PLACE, LOW BED AND LOCKED, BED ALARM IN PLACE ALL NEEDS ATTENDED AT THIS TIME, WILL CONTINUE TO MONITOR AND ATTEND TO NEEDS. ON CARDIAC TELE MONITOR SR 63. ON ISOLATION PRECAUTIONS FOR RULE OUT COVID.
[2020-02-03 20:00] VITALS: BP 142/73
[2020-02-03] MEDS: IV NS 0.9% 1,000 ML IV PRN (20:56)
[2020-02-03] MEDS: INSULIN REGULAR, HUMAN 100 UNIT/ML 3 ML VIAL SQ PRN (21:14)
[2020-02-04] VITALS: BP 153/77
[2020-02-04 04:40] VITALS: BP 159/75
[2020-02-04] MEDS: ACETAMINOPHEN 325 MG TABLET PO PRN ×3 (04:43→21:18)
--- NOTE | 2020-02-04 04:48 | NUR ---
SHERIFFS NOTES NOTED PATIENT IN GENERALIZED PAIN 5/10 OFFERED TYLENOL. PATIENT AGREED TYLENOL PRN GIVEN , WILL CONTINUE TO MONITOR AND ATTEND TO NEEDS.
[2020-02-04] MEDS: INSULIN REGULAR, HUMAN 100 UNIT/ML 3 ML VIAL SQ PRN ×2 (05:59→21:15)
[2020-02-04] MEDS: BLOOD SUGAR DIAGNOSTIC 1 EACH STRIP IN SCH ×4 (05:59→21:11)
--- NOTE | 2020-02-04 06:23 | NUR ---
MIDDLEWARE DEVELOPER CLOSING NOTES PATIENT IN BED AWAKE ALERT AND ORIENTED X2, ABLE TO MAKE NEEDS, KNOWN, RESPIRATIONS EVEN AND UNLABORED WITH EQUAL RISE AND FALL OF CHEST, ON 1L VIA NC, TYLENOL NOTED EFFECTIVE, IV SITE TO LEFT WRIST #22 G INTACT AND PATENT, IVF RUNNING ORDERED. CALL LIGHT KEPT WITHIN REACH, SAFETY PRECAUTIONS IN PLACE, LOW BED AND LOCKED, BED ALARM IN PLACE ALL NEEDS ATTENDED AT THIS TIME, WILL CONTINUE TO MONITOR AND ATTEND TO NEEDS AND ENDORSE TO NEXT SHIFT. ON CARDIAC TELE MONITOR SR 66. ON ISOLATION PRECAUTIONS FOR RULE OUT COVID.
--- NOTE | 2020-02-04 07:36 | NUR ---
MOLDING CUTTER OPENING NOTES RECEIVED PATIENT IN BED, ASLEEP. PATIENT ON OXYGEN THERAPY 2 LPM VIA NASAL CANULA; BREATHING EVEN AND UNLABORED; NO SOB NOTED AT THIS TIME. EXTERNAL BROACH GRINDER ON WITH A CURRENT READING OF NORMAL SR 66 BPM. NO SIGNS OF PAIN SUCH FACIAL GRIMACING OR MOANING AT THIS TIME. PT HAS AN IV ACCESS ON L WRIST INFUSING NS @ 75 ML/HR. SAFETY PRECAUTIONS IN PLACE; BED IN LOW POSITION AND LOCKED, RAILS UP X2, CALL LIGHT WITHIN REACH. WILL CONTINUE TO MONITOR PATIENT.
[2020-02-04 08:00] VITALS: BP 146/94
--- NOTE | 2020-02-04 11:15 | NUR ---
SW attempted to speak to the pt but the pt was unable to answer some of the questions regarding her care at home. SW contacted the pts daughter, Arielle ([phone]), who stated that the pt lives at home and has caregiving service 16/05. Pt has one caregiver that is there for 24 hours Tuesday through Tuesday (Pretty Maynard) and has one on the weekends for 24 hours (Yanelis). Pts daughter stated that both daughters live within 10 minutes of the pt and visit and care for the pt often.
[2020-02-04] MEDS: IV NS 0.9% 1,000 ML IV PRN (15:57)
[2020-02-04 16:00] VITALS: BP 163/80
--- NOTE | 2020-02-04 19:00 | NUR ---
RN MS OPENING NOTES RECEIVED PATIENT IN BED AWAKE ALERT AND ORIENTED X2, ABLE TO MAKE NEEDS, KNOWN, RESPIRATIONS EVEN AND UNLABORED WITH EQUAL RISE AND FALL OF CHEST, ON 1L VIA NC,DENIES ANY PAIN OR DISCOMFORT AT THIS TIME, IV SITE RIGHT HAND #22 G INTACT AND PATENT, IVF RUNNING ORDERED. ORIENTED TO STAFF AND CALL LIGHT AND KEPT WITHIN REACH, SAFETY PRECAUTIONS IN PLACE, LOW BED AND LOCKED, BED ALARM IN PLACE ALL NEEDS ATTENDED AT THIS TIME, WILL CONTINUE TO MONITOR AND ATTEND TO NEEDS. RECEIVD CALL FROM ILYA DAUGHTER WHO STATES " ITS OKAY TO GIVE MEDICAL INFORMATION TO HER SON WAQAS [phone].
--- NOTE | 2020-02-04 19:01 | NUR ---
MS RN CLOSING NOTES PATIENT IN BED, ASLEEP. PATIENT ON OXYGEN THERAPY 2 LPM VIA NASAL CANULA; BREATHING EVEN AND UNLABORED; NO SOB NOTED AT THIS TIME. EXTERNAL DIRECTOR REGULATORY AFFAIRS D/C. GENERALIZED PAIN DUE TO ARTHRITIS THROUGHOUT THE DAY EASED WITH PRN TYLENOL. PT HAS AN IV ACCESS ON R HAND INFUSING NS @ 75 ML/HR. ALL NEEDS ATTENDED TO THROUGHOUT THE DAY. SAFETY PRECAUTIONS IN PLACE; BED IN LOW POSITION AND LOCKED, RAILS UP X2, CALL LIGHT WITHIN REACH. ENDORSE TO SCHOOL PSYCHOLOGICAL EXAMINER NURSE.
[2020-02-04 20:16] VITALS: BP 159/87
--- NOTE | 2020-02-04 21:18 | NUR ---
RN MS NOTES NOTED PATIENT WITH FACIAL GRIMACING, STATES "PAIN" WHEN ASKED UNABLE TO STATE NUMBER BASED ON JUNIOR GRACE SCALE NOTED 4/10, TYLENOL OFFERED, PATIENT AGREED . PRN GIVEN ORDERED, WILL CONTINUE TO MONITOR FOR EFFECTIVENESS, PATIENT CLEANSED AND REPOSITIONED, LIGHTS DIMMED.
[2020-02-04] MEDS: ONDANSETRON HCL/PF 4 MG/2 ML VIAL IVP PRN (22:21)
--- NOTE | 2020-02-04 22:21 | NUR ---
RN MS NOTES PATIENT STATES SHE FEELS NAUSEOUS, OFFERED ZOFRAN PRN , PATIENT AGREES SHE WANTS IT. ZOFRAN PRN GIVEN ORDERED WILL CONTINUE TO MONITOR, HEAD OF BED ELEVATED FOR ASPIRATION PRECAUTIONS.
[2020-02-05] VITALS (8 sets, daily range): BP systolic 94–182; BP diastolic 65–94
[2020-02-05] MEDS: IV NS 0.9% 1,000 ML IV PRN (05:31)
[2020-02-05] MEDS: BLOOD SUGAR DIAGNOSTIC 1 EACH STRIP IN SCH ×4 (06:42→22:41)
[2020-02-05] MEDS: INSULIN REGULAR, HUMAN 100 UNIT/ML 3 ML VIAL SQ PRN ×2 (06:43→22:42)
--- NOTE | 2020-02-05 06:58 | NUR ---
RN MS CLOSING NOTES PATIENT IN BED AWAKE ALERT AND ORIENTED X2, ABLE TO MAKE NEEDS KNOWN, RESPIRATIONS EVEN AND UNLABORED WITH EQUAL RISE AND FALL OF CHEST, ON 1L VIA NC PRN TOLERATED MOST OF SHIFT ON RA ,DENIES ANY PAIN OR DISCOMFORT AT THIS TIME, IV SITE RIGHT HAND #22 G INTACT AND PATENT, IVF RUNNING ORDERED. CALL LIGHT KEPT WITHIN REACH, SAFETY PRECAUTIONS IN PLACE, LOW BED AND LOCKED, BED ALARM IN PLACE ALL NEEDS ATTENDED AT THIS TIME WILL ENDORSE TO NEXT SHIFT, WILL CONTINUE TO MONITOR AND ATTEND TO NEEDS. RECEIVED CALL FROM ILYA DAUGHTER WHO STATES " ITS OKAY TO GIVE MEDICAL INFORMATION TO HER SON WAQAS [phone]. AT THIS TIME, REMAINS COMFORTABLE.
[2020-02-05 07:29] LABS: BASOPHILS % (AUTO) 0.3 % (0.0-2.0); EOSINOPHILS % (AUTO) 1.3 % (0.0-6.0); HEMATOCRIT 33 % (33-45); LYMPHOCYTES # (AUTO) 0.6 /CMM (0.8-4.8); LYMPHOCYTES % (AUTO) 14.7 % (20.0-44.0); MEAN CORPUSCULAR HGB CONC 34 g/dl (31.0-36.0); MEAN CORPUSCULAR VOLUME 89 fL (82-100); MONOCYTES # (AUTO) 0.2 /CMM (0.1-1.30); MONOCYTES % (AUTO) 6.1 % (2.0-12.0); NEUTROPHILS # (AUTO) 3.1 /CMM (1.8-8.9); NEUTROPHILS % (AUTO) 77.6 % (43.0-81.0); PLATELET COUNT (AUTO) 191 /CMM (150-450); RED BLOOD CELL COUNT(AUTO) 3.67 MIL/uL (4.0-5.2)
[2020-02-05 08:00] LABS: ALANINE AMINOTRANSFERASE 21 U/L (12-78); ALBUMIN 2.5 g/dL (3.4-5.0); ALKALINE PHOSPHATASE 54 U/L (46-116); ASPARTATE AMINOTRANSFERASE 36 U/L (15-37); BILIRUBIN,TOTAL 0.8 mg/dL (0.2-1.0); CALCIUM, SERUM 8.4 mg/dL (8.5-10.1); CARBON DIOXIDE 26 mmol/L (21-32); CHLORIDE 96 mmol/L (98-107); CREATININE 0.9 mg/dL (0.6-1.3); GLUCOSE 94 mg/dL (74-106); MAGNESIUM 1.3 mg/dL (1.8-2.4); PHOSPHORUS 2.8 mg/dL (2.5-4.9); POTASSIUM 2.9 mmol/L (3.5-5.1); SODIUM SERUM 132 mmol/L (136-145); TOTAL PROTEIN, SERUM 6.2 g/dL (6.4-8.2); UREA NITROGEN, BLOOD 14 mg/dL (7-18)
[2020-02-05 08:03] LABS: CREATINE KINASE, TOTAL 58 U/L (26-192)
[2020-02-05] MEDS: Magnesium 1GM/D5W 100ML PREMIX 100 ML IV SCH ×2 (10:23→11:41)
[2020-02-05] MEDS: POTASSIUM CHLORIDE 20 MEQ TAB.PRT.SR PO SCH ×5 (10:23→15:51)
[2020-02-05] MEDS: ACETAMINOPHEN 325 MG TABLET PO PRN ×2 (10:48→20:30)
--- NOTE | 2020-02-05 10:51 | NUR ---
med. for chest discomfort with tylenol 650 mg po.
[2020-02-05] MEDS: ONDANSETRON HCL/PF 4 MG/2 ML VIAL IVP PRN (12:11)
--- NOTE | 2020-02-05 12:14 | NUR ---
medicated for nausea with zofran.receiving potassium replacement and mg. replacement.
--- NOTE | 2020-02-05 16:20 | NUR ---
report per recreation facility attendant that bp elevated rn rechecked manually.and and find bp to be 180/84,heart rate 76.
--- NOTE | 2020-02-05 16:44 | NUR ---
call out to dr. small,informed him of elevated bp. and mentioned on no antibiotic as he states in his notes pt is on,as well as no home bp meds ordered.states he will follow up.
[2020-02-05] MEDS: CEFTRIAXONE 1 G in IV D5W 50 ML IV SCH (17:33)
[2020-02-05] MEDS: LOSARTAN/HCTZ 50-12.5MG/ 1 EA TABLET PO SCH (17:56)
[2020-02-05] MEDS: TRIAMTERENE/HYDROCHLOROTHIAZID (37.5/25MG) 1 UDCAP PO SCH (17:56)
[2020-02-05] MEDS: GABAPENTIN 100 MG CAPSULE PO SCH (17:57)
--- NOTE | 2020-02-05 18:43 | NUR ---
rt. arm hep lock infiltrated,curriculum consultant here for restart.
--- NOTE | 2020-02-05 18:50 | NUR ---
UNSUCCESSFUL IV START ATTEMPT.TEMPORARY OFFICE ASSISTANT CALLING DISCHARGE PLANNER AND DR. RUTH FOR MIDLINE IV.ENDORSED TO NIDIA. ZITA CROSS.
--- NOTE | 2020-02-05 19:10 | NUR ---
RN MS OPENING NOTES RECEIVED PATIENT IN BED AWAKE ALERT AND ORIENTED X2, ABLE TO MAKE NEEDS KNOWN, RESPIRATIONS EVEN AND UNLABORED WITH EQUAL RISE AND FALL OF CHEST, ON 1L VIA NC,DENIES ANY PAIN OR DISCOMFORT AT THIS TIME, RECEIVED NEW ORDER FOR MIDLINE FROM DR. RUTH. FOR MULTIPLE IV ATTEMPTS DONE ON PRIOR SHIFT. AWAITING FOR TIME RACHANA TO PLACE MIDLINE INSERTION ,ORIENTED TO STAFF AND CALL LIGHT AND KEPT WITHIN REACH, SAFETY PRECAUTIONS IN PLACE, LOW BED AND LOCKED, BED ALARM IN PLACE ALL NEEDS ATTENDED AT THIS TIME, WILL CONTINUE TO MONITOR AND ATTEND TO NEEDS.
--- NOTE | 2020-02-05 20:30 | NUR ---
RN MS NOTES PATIENT COMPLAINT OF GENERALIZED PAIN REPOSITIONED AND OFFERED TYLENOL FOR PAIN PATIENT AGREED TO TAKE TYLENOL PRN GIVEN ORDERED, REPOSITIONED AND LIGHTS DIMMED WILL CONTINUE TO MONITOR FOR EFFECTIVENESS.
--- NOTE | 2020-02-05 22:00 | NUR ---
RN MS NOTES BLOOD PRESSURE RECHECKED, DECREASED 137/70. TYLENOL WAS EFFECTIVE. NOTED RELIEF, PATIENT IS RESTING. STILL AWAITING FOR MIDLINE INSERTION
--- NOTE | 2020-02-06 02:22 | NUR ---
RN MS NOTES NOTED PATIENT AWAKE, MIDLINE INSERTION STILL PENDING R/T MULTIPLE IV ATTEMPTS, ASKED PATIENT IF I COULD ATTEMPT TO INSERT IV PATIENT AGREED TO 1 TIME TRY ONLY. ATTEMPTED UNSUCCESSFUL. WILL CONTINUE TO MONITOR, REMAINS STABLE AT THIS TIME.
[2020-02-06] MEDS: INSULIN REGULAR, HUMAN 100 UNIT/ML 3 ML VIAL SQ PRN (06:18)
[2020-02-06] MEDS: BLOOD SUGAR DIAGNOSTIC 1 EACH STRIP IN SCH ×4 (06:18→22:12)
--- NOTE | 2020-02-06 06:22 | NUR ---
RN MS NOTES FOLLOWED UP WITH DR. MIA REICH FOR MIDLINE PER MIA, RENETTA WILL DO MIDLINE THIS MORNING.
--- NOTE | 2020-02-06 06:35 | NUR ---
RN MS CLOSING NOTES PATIENT IN BED AWAKE ALERT AND ORIENTED X2, ABLE TO MAKE NEEDS KNOWN, RESPIRATIONS EVEN AND UNLABORED WITH EQUAL RISE AND FALL OF CHEST, ON ROOM AIR THROUGHOUT SHIFT TOLERATED WELL, NO SOB.DENIES ANY PAIN OR DISCOMFORT AT THIS TIME, MIDLINE STILL PENDING FOR MULTIPLE IV ATTEMPTS DONE ON PRIOR SHIFT AND ONE ATTEMPT DURING THIS SHIFT. CALL LIGHT KEPT WITHIN REACH, SAFETY PRECAUTIONS IN PLACE, LOW BED AND LOCKED, BED ALARM IN PLACE ALL NEEDS ATTENDED AT THIS TIME, WILL CONTINUE TO MONITOR AND ENDORSE TO NEXT SHIFT, REMAINS COMFORTABLE, PATIENT ENCOURAGED TO EAT DINNER AT START OF SHIFT AND REFUSED.
[2020-02-06 07:06] LABS: PTH, INTACT 26 pg/mL (15-65)
[2020-02-06 08:00] VITALS: BP 148/87
[2020-02-06 09:59] LABS: ALBUMIN 2.5 g/dL (3.4-5.0); BILIRUBIN,TOTAL 0.9 mg/dL (0.2-1.0); CREATININE 0.9 mg/dL (0.6-1.3); MAGNESIUM 1.6 mg/dL (1.8-2.4); PHOSPHORUS 2.6 mg/dL (2.5-4.9); POTASSIUM 4.3 mmol/L (3.5-5.1); TOTAL PROTEIN, SERUM 6.5 g/dL (6.4-8.2)
[2020-02-06] MEDS: AZITHROMYCIN 250 MG TABLET PO SCH (10:57)
[2020-02-06] MEDS: GABAPENTIN 100 MG CAPSULE PO SCH ×2 (10:57→18:23)
[2020-02-06] MEDS: TRIAMTERENE/HYDROCHLOROTHIAZID (37.5/25MG) 1 UDCAP PO SCH (13:08)
[2020-02-06] MEDS: LOSARTAN/HCTZ 50-12.5MG/ 1 EA TABLET PO SCH (13:08)
--- NOTE | 2020-02-06 15:30 | NUR ---
HAD MIDLINE INSERTION TO RT. UPPER ARM.TOLERATED WELL.
[2020-02-06 16:00] VITALS: BP 134/86
[2020-02-06] MEDS: Magnesium 1GM/D5W 100ML PREMIX 100 ML IV SCH ×2 (16:18→17:31)
--- NOTE | 2020-02-06 18:00 | NUR ---
DR. RUTH AWARE PT. NOT EATING.DENIES NAUSEA.BGLEVELS STABLE.MG REPLACEMENT.
[2020-02-06] MEDS: CEFTRIAXONE 1 G in IV D5W 50 ML IV SCH (19:24)
[2020-02-06 20:00] VITALS: BP 150/90
--- NOTE | 2020-02-06 20:00 | NUR ---
RN NOTES RECEIVED PT. SLEEPING BUT AROUSABLE, FARSI SPEAKING, A/OX1-2, NOT IN DISTRESS, CALL LIGHT WITHIN REACH, SIDERAILSUPX2, CONTINUE TO MONITOR
[2020-02-07 06:21] LABS: BASOPHILS % (AUTO) 0.6 % (0.0-2.0); EOSINOPHILS % (AUTO) 1.4 % (0.0-6.0); HEMATOCRIT 33 % (33-45); HEMOGLOBIN 11.6 g/dL (11.5-14.8); LYMPHOCYTES # (AUTO) 0.8 /CMM (0.8-4.8); LYMPHOCYTES % (AUTO) 17.5 % (20.0-44.0); MEAN CORPUSCULAR HGB CONC 35 g/dl (31.0-36.0); MEAN CORPUSCULAR VOLUME 89 fL (82-100); MONOCYTES # (AUTO) 0.4 /CMM (0.1-1.30); MONOCYTES % (AUTO) 9.8 % (2.0-12.0); NEUTROPHILS # (AUTO) 3.2 /CMM (1.8-8.9); NEUTROPHILS % (AUTO) 70.7 % (43.0-81.0); PLATELET COUNT (AUTO) 244 /CMM (150-450); RED BLOOD CELL COUNT(AUTO) 3.75 MIL/uL (4.0-5.2); WHITE BLOOD COUNT (AUTO) 4.5 K/uL (4.3-11.0)
--- NOTE | 2020-02-07 06:26 | NUR ---
RN NOTES AWAKE, MORNING CARE RENDERED, NOT IN DISTRESS, NO PAIN NOTED, PT. NEEDS ATTENDED
[2020-02-07 07:02] LABS: CREATININE 0.9 mg/dL (0.6-1.3); MAGNESIUM 1.8 mg/dL (1.8-2.4); POTASSIUM 4.1 mmol/L (3.5-5.1)
--- NOTE | 2020-02-07 07:30 | NUR ---
RN MS NOTES PT IN BED, AWAKE, ALERT TO SELF, VERBALLY RESPONSIVE, WITH CONFUSION, NOT IN DISTRESS, CALL LIGHT WITHIN REACH, KEPT WARM AND COMFORTABLE IN BED, NEEDS ATTENDED, ASSISTED WITH MEALS.
[2020-02-07 08:00] VITALS: BP 136/78
[2020-02-07] MEDS: LOSARTAN/HCTZ 50-12.5MG/ 1 EA TABLET PO SCH (08:58)
[2020-02-07] MEDS: TRIAMTERENE/HYDROCHLOROTHIAZID (37.5/25MG) 1 UDCAP PO SCH (08:58)
[2020-02-07] MEDS: GABAPENTIN 100 MG CAPSULE PO SCH ×2 (08:59→17:13)
[2020-02-07] MEDS: BLOOD SUGAR DIAGNOSTIC 1 EACH STRIP IN SCH ×4 (09:07→23:10)
[2020-02-07] MEDS: AZITHROMYCIN 250 MG TABLET PO SCH (09:07)
[2020-02-07 11:09] LABS: *SPE A/G RATIO 0.9 (0.7-1.7); *SPE ALBUMIN 2.7 g/dL (2.9-4.4); *SPE ALPHA-1-GLOBULIN 0.3 g/dL (0.0-0.4); *SPE ALPHA-2-GLOBULIN 1.1 g/dL (0.4-1.0); *SPE BETA GLOBULIN 0.7 g/dL (0.7-1.3); *SPE M-SPIKE Not Observed g/dL (Not Observed); *SPEGAMMA GLOBULIN 0.9 g/dL (0.4-1.8)
--- NOTE | 2020-02-07 13:00 | NUR ---
RN MS NOTES PT IN BED, RESTING, NO COMPLAINT OF PAIN OR ANY DISCOMFORT, RESPIRATIONS NORMAL. CALL LIGHT WITHIN REACH, NEEDS ATTENDED, ASSISTED WITH MEALS.
[2020-02-07 16:00] VITALS: BP 141/85
[2020-02-07] MEDS: LOSARTAN POTASSIUM 50 MG TABLET PO SCH (17:13)
[2020-02-07] MEDS: CEFTRIAXONE 1 G in IV D5W 50 ML IV SCH (17:13)
--- NOTE | 2020-02-07 18:53 | NUR ---
RN MS NOTES PT IN BED, RESTING, ALERT AND ORIENTED, DENIES PAIN, NOT IN DISTRESS, ENCOURAGED INCREASED ORAL INTAKE, CALL LIGHT WITHIN REACH, DUE MEDS GIVEN ORDERED, ALL NEEDS ATTENDED.
--- NOTE | 2020-02-07 19:40 | NUR ---
RN OPENING NOTES RECEIVED REPORT FROM DAYSMTFT RN VANCE. FOUND Pt AWAKE, RESTING IN BED. NO S/S OF ACUTE DISTRESS OR SOB NOTED. PER REPORT Pt IS A/OX1, CONFUSED, FARSI SPEAKING ONLY, UNDERSTANDS VERY LITTLE TAJIK. Pt IS CURRENTLY ON R/O COVID ISO PRECAUTION. IV ACCESS ON RACHELLE MIDLINE #18G, SL. SAFETY MEASURES IN PLACE. BED LOW, LOCKED, HOB ELEVATED, SIDE RAILS UP, CALL LIGHT AND BEDSIDE TABLE WITHIN REACH. WILL CONTINUE TO MONITOR Pt's CONDITION AND SAFETY THROUGHOUT THE NIGHT.
[2020-02-07 20:30] VITALS: BP 146/83
[2020-02-07 20:35] VITALS: BP 146/83
--- NOTE | 2020-02-07 23:00 | NUR ---
RN NOTES HS ACCUCHECK BG 91. NO INSULIN COVERAGE NEEDED AT THIS TIME.
--- NOTE | 2020-02-08 06:30 | NUR ---
RN NOTES Pt REFUSED AM ACCUCHECK. WAS CRYING AND SHAKING HER HEAD "NO". Pt HAD NOTHING TO EAT DURING THE NIGHT. LAST NIGHT HS ACCUCHECK BG WAS 91. WILL INFORM ON COMING RN.
--- NOTE | 2020-02-08 06:45 | NUR ---
RN CLOSING NOTES NO SIGNIFICANT CHANGES IN Pt's CONDITION. Pt REMAINS STABLE PER BASELINE. NO S/S OF ACUTE DISTRESS OR SOB NOTED DURING THE NIGHT. Pt IS RESTING COMFORTABLY IN BED. ALL NEEDS MET AND ATTENDED TO. SAFETY MEASURES IN PLACE. BED LOW, LOCKED, HOB ELEVATED, SIDE RAILS UP, CALL LIGHT AND BEDSIDE TABLE WITHIN REACH. BED ALARM ON. WILL ENDORSE TO DAYSHIFT RN FOR Pt's KIMBERLY.
[2020-02-08] MEDS: BLOOD SUGAR DIAGNOSTIC 1 EACH STRIP IN SCH ×4 (06:48→21:08)
--- NOTE | 2020-02-08 07:56 | NUR ---
MS RN- OPENING NOTES RECEIVED PATIENT FROM BIOLOGY SPECIALIST NURSE IN BED, ASLEEP, UNLABORED BREATHING AT ROOM AIR, NO SIGNS OF RESPIRATORY DISTRESS, IV ACCESS AT RIGHT UPPER ARM MIDLINE 18G, NO INFILTRATION OR REDNESS NOTED. SIDE RAILS UP FOR SAFETY.
[2020-02-08 08:00] VITALS: BP 128/73
[2020-02-08] MEDS: GABAPENTIN 100 MG CAPSULE PO SCH ×2 (09:05→16:31)
[2020-02-08] MEDS: LOSARTAN POTASSIUM 50 MG TABLET PO SCH ×2 (09:06→16:31)
[2020-02-08] MEDS: AZITHROMYCIN 250 MG TABLET PO SCH (09:06)
[2020-02-08] MEDS: ENSURE ENLIVE 237 ML LIQUID (VANILLA) PO SCH ×2 (09:08→16:32)
--- NOTE | 2020-02-08 12:02 | NUR ---
MS RN- REFUSE ACCU CHECK PATIENT REFUSED TO HAVE AN ACCU CHECK.
[2020-02-08] MEDS: ACETAMINOPHEN 325 MG TABLET PO PRN (13:04)
[2020-02-08] MEDS: CEFTRIAXONE 1 G in IV D5W 50 ML IV SCH ×2 (17:00→18:00)
--- NOTE | 2020-02-08 17:38 | NUR ---
MS RN - IV ACCESS DISLODGED ROCEPHIN 1 G NOT GIVEN IN TIME. MIDLINE ACCESS IS DISLODGED.
--- NOTE | 2020-02-08 18:00 | NUR ---
MS RN NOTES PATIENT REFUSED IV INSERTION, GAVE PATIENT RISK AND BENEFIT, ROCEPIN NOT GIVEN.
--- NOTE | 2020-02-08 18:18 | NUR ---
MS RN- GLUCOSE ACCU CHECK DONE, 93 MG/DL.
--- NOTE | 2020-02-08 18:51 | NUR ---
MS RN- CLOSING NOTES ENDORSED PATIENT IN BED, AWAKE, CONSCIOUS, IV MIDLINE DISLODGED, ROCEPHIN ANTIBIOTICS NOT GIVEN, NO SIGNS OF RESPIRATORY DISTRESS, SIDE RAILS UP FOR SAFETY, ENCOURAGED PATIENT THE IMPORTANCE OF EATING HER MEAL.
--- NOTE | 2020-02-08 19:37 | NUR ---
MS RN OPENING NOTES PATIENT RESTING IN BED; FARSI SPEAKING A/OX2-3; BREATHING EVEN AND UNLABORED; NO SOB, NO S/S OF ACUTE RESPIRATORY DISTRESS NOTED; PATIENT TOLERATING 2L NC WELL; PATIENT HAS NO IV ACCESS; PATIENT REFUSED PER AM SHIFT; ANTIBIOTIC NOT GIVEN, WILL REQUEST IF ANTIBIOTIC CAN BE CHANGED TO TABLET; SAFETY PRECAUTIONS IN PLACE; BED LOCKED IN LOW POSITION; CALL LIGHT WITHIN REACH; WILL CONTINUE TO MONITOR
[2020-02-08 20:00] VITALS: BP 142/71
--- NOTE | 2020-02-08 20:22 | NUR ---
MS RN NOTES AWAITING FOR DR. MIA REICH REPLY REGARDING CHANGING IV ROCEPHIN TO TABLET FORM; PATIENT REFUSING IV ACCESS; RISKS AND BENEFITS WERE DISCUSSED; PATIENT STILL REFUSING; WILL CONTINUE TO MONITOR
--- NOTE | 2020-02-08 21:09 | NUR ---
MS RN NOTES PATIENT REFUSING ACCU CHECKS; PATIENT STARTED CRYING; RISK AND BENEFITS DISCUSSED AND REVIEWED WITH PATIENT; PATIENT STILL DOES NOT WANT HER BLOOD SUGAR TO BE CHECKED; PATIENT VERBALIZED SHE ALREADY GOT IT CHECKED EARLIER; PREVIOUS BS 93. NO COVERAGE GIVEN; PATIENT WAS INFORMED ON HOW OFTEN ACCU CHECKS ARE; PATIENT STILL REFUSED; WILL CONTINUE TO MONITOR
--- NOTE | 2020-02-08 21:22 | NUR ---
MS RN NOTES PER DR MIA REICH; "LEAVE IT." NO CHANGES MADE; NO IV ACCESS. MD AWARE. WILL CONTINUE TO MONITOR
--- NOTE | 2020-02-09 02:55 | NUR ---
MS RN NOTES PATIENT ABLE TO TOLERATE ROOM AIR WELL; PATIENT DOES NOT WANT 2L NC WHILE SHE IS SLEEPING; PATIENT IS AWARE SHE IS ABLE TO USE 2L NC PRN; WILL CONTINUE TO MONITOR
[2020-02-09] MEDS: BLOOD SUGAR DIAGNOSTIC 1 EACH STRIP IN SCH ×4 (06:41→22:00)
--- NOTE | 2020-02-09 06:41 | NUR ---
MS RN CLOSING NOTES PATIENT RESTING IN BED COMFORTABLY, BREATHING EVEN AND UNLABORED; NO SOB NOTED; PATIENT REFUSING IV ACCESS MD AWARE; PATIENT REFUSING ACCU CHECKS, PATIENT AWARE OR RISK AND BENEFITS, STILL REFUSING; ALL NEEDS RENDERED; SAFETY PRECAUTIONS IN PLACE; BED LOCKED IN LOW POSITION, SIDE RAILS X2; CALL LIGHT WITHIN EASY REACH; WILL ENDORSE KIMBERLY TO ONCOMING SHIFT
[2020-02-09 07:08] VITALS: BP 154/96
[2020-02-09 08:00] VITALS: BP 130/71
--- NOTE | 2020-02-09 08:00 | NUR ---
MS RN- OPENING NOTES RECEIVED PATIENT IN BED, AWAKE, CONSCIOUS, COOPERATIVE, NO IV ACCESS AND MD AWARE, NO SIGNS OF RESPIRATORY DISTRESS, SIDE RAILS UP FOR SAFETY.
[2020-02-09] MEDS: AZITHROMYCIN 250 MG TABLET PO SCH (09:24)
--- NOTE | 2020-02-09 09:24 | NUR ---
MS RN NOTES MED PATIENT REFUSED TO TAKE HER 9:00AM ZITHROMAX.
[2020-02-09] MEDS: GABAPENTIN 100 MG CAPSULE PO SCH ×2 (09:25→17:00)
[2020-02-09] MEDS: LOSARTAN POTASSIUM 50 MG TABLET PO SCH ×2 (09:27→17:00)
[2020-02-09] MEDS: ENSURE ENLIVE 237 ML LIQUID (VANILLA) PO SCH ×2 (09:27→17:00)
[2020-02-09 10:43] LABS: ALBUMIN 2.7 g/dL (3.4-5.0); BILIRUBIN,TOTAL 0.8 mg/dL (0.2-1.0); CALCIUM, SERUM 9.6 mg/dL (8.5-10.1); CREATININE 0.9 mg/dL (0.6-1.3); MAGNESIUM 1.6 mg/dL (1.8-2.4); PHOSPHORUS 3.6 mg/dL (2.5-4.9); POTASSIUM 4.9 mmol/L (3.5-5.1); TOTAL PROTEIN, SERUM 7.5 g/dL (6.4-8.2)
--- NOTE | 2020-02-09 12:00 | NUR ---
MS RN NOTES ACCU PATIENT REFUSED ACCU CHECK.
[2020-02-09 12:38] LABS: EOSINOPHILS % (AUTO) 2.6 % (0.0-6.0); HEMATOCRIT 36 % (33-45); HEMOGLOBIN 12.3 g/dL (11.5-14.8); LYMPHOCYTES % (AUTO) 22.3 % (20.0-44.0); MEAN CORPUSCULAR HGB CONC 34 g/dl (31.0-36.0); MEAN CORPUSCULAR VOLUME 89 fL (82-100); MONOCYTES # (AUTO) 0.4 /CMM (0.1-1.30); MONOCYTES % (AUTO) 9.1 % (2.0-12.0); NEUTROPHILS # (AUTO) 2.8 /CMM (1.8-8.9); PLATELET COUNT (AUTO) 312 /CMM (150-450); RED BLOOD CELL COUNT(AUTO) 4.05 MIL/uL (4.0-5.2); WHITE BLOOD COUNT (AUTO) 4.3 K/uL (4.3-11.0)
[2020-02-09 16:00] VITALS: BP 147/92
--- NOTE | 2020-02-09 19:24 | NUR ---
MS RN- CLOSING NOTES ENDORSED PATIENT TO SUPERVISOR WHIPPED TOPPING NURSE IN BED, AWAKE, CONSCIOUS, UNCOOPERATIVE, SIDE RAILS UP FOR SAFETY.
--- NOTE | 2020-02-09 19:25 | NUR ---
MS RN NOTES PATIENT RECEIVED IN BED RESTING. ALERT AND ORIENTED X 2-3, MAINLY FARSI SPEAKING. NO SIGNS OF RESPIRATORY DISTRESS PRESENT AT THIS TIME, WITH EVEN NON-LABORED BREATHING, TOLERATING NASAL CANNULA 2L. PATIENT HAS NO IV ACCESS DUE TO PATIENT REFUSING, MD MADE AWARE. SAFETY PRECAUTIONS IN PLACE WITH BED IN THE LOWEST POSITION, BILATERAL SIDE RAILS UP, BED LOCKED, BED ALARM ON, AND CALL LIGHT WITHIN EASY REACH OF THE PATIENT. WILL CONTINUE TO MONITOR PATIENT.
[2020-02-09 20:00] VITALS: BP 154/96
--- NOTE | 2020-02-09 23:00 | NUR ---
MS RN NOTES PATIENT REFUSED ACCU-CHECK. INFORMED THE PATIENT THE RISKS AND BENEFITS OF CHECKING HER BLOOD SUGAR AND RE-EDUCATED THE PATIENT ON THE NEED FOR CHECKING BLOOD SUGAR. PATIENT REFUSED MULTIPLE TIMES. INFORMED CHARGE NURSE, AND WILL CONTINUE TO MONITOR PATIENT.
--- NOTE | 2020-02-10 06:54 | NUR ---
MS RN NOTES PATIENT REFUSED ACCU-CHECK AND BEGAN TO GET UPSET. INFORMED THE PATIENT THE RISKS AND BENEFITS OF CHECKING HER BLOOD SUGAR. EDUCATED THE PATIENT ON THE NEED FOR CHECKING BLOOD SUGAR. PATIENT REFUSED AND STATED "NO, I DON'T WANT." INFORMED CHARGE NURSE, AND WILL ENDORSE TO DAYSHIFT NURSE AND WILL CONTINUE TO MONITOR PATIENT.
--- NOTE | 2020-02-10 06:54 | NUR ---
MS RN NOTES PATIENT IN BED RESTING, ON ROOM AIR, WITH NO SIGNS OF RESPIRATORY DISTRESS PRESENT, WITH EVEN NON-LABORED BREATHING. PATIENT REFUSED ACCU-CHECKS AFTER EDUCATING PATIENT AND EXPLAINING THE RISKS AND BENEFITS. PROVIDED COMFORT MEASURES TO THE PATIENT. NO SIGNS OF DISCOMFORT AT THIS TIME. SAFETY PRECAUTIONS IN PLACE WITH BED LOCKED, BED ALARM ON, BILATERAL SIDE RAILS UP, BED IN THE LOWEST POSITION, AND CALL LIGHT IN EASY REACH OF THE PATIENT. WILL ENDORSE PLAN OF CARE TO UPCOMING DAYSHIFT RN.
[2020-02-10] MEDS: BLOOD SUGAR DIAGNOSTIC 1 EACH STRIP IN SCH ×4 (07:30→21:21)
--- NOTE | 2020-02-10 07:45 | NUR ---
MS/RN Patient received Patient received from night shift manager. A/O X2-3, continues to refuse any blood draw and blood sugar check. Safety measures in place, bed in low setting, side rails X3 in upright position, call light within reach. Will continue to monitor and ensure safety.
[2020-02-10 08:00] VITALS: BP 147/93
[2020-02-10] MEDS: GABAPENTIN 100 MG CAPSULE PO SCH ×2 (08:52→17:23)
[2020-02-10] MEDS: ENSURE ENLIVE 237 ML LIQUID (VANILLA) PO SCH ×2 (08:53→17:30)
[2020-02-10] MEDS: AZITHROMYCIN 250 MG TABLET PO SCH (08:53)
[2020-02-10] MEDS: LOSARTAN POTASSIUM 50 MG TABLET PO SCH ×2 (08:55→17:24)
--- NOTE | 2020-02-10 09:00 | NUR ---
MS/RN Medications Morning medications administered as ordered, no difficulty swallowing.
--- NOTE | 2020-02-10 10:15 | NUR ---
MS/RN Weight Daily weight recorded - 143.7lb
--- NOTE | 2020-02-10 10:29 | NUR ---
MS/RN Refused blood draw. Patient refusing blood to be drawn, educated as to the importance of this but still refusing. Per lab, will come and attempt to draw later today.
[2020-02-10 11:20] LABS: BASOPHILS % (AUTO) 1.3 % (0.0-2.0); EOSINOPHILS % (AUTO) 2.7 % (0.0-6.0); HEMATOCRIT 37 % (33-45); HEMOGLOBIN 12.8 g/dL (11.5-14.8); LYMPHOCYTES # (AUTO) 0.8 /CMM (0.8-4.8); LYMPHOCYTES % (AUTO) 21.2 % (20.0-44.0); MEAN CORPUSCULAR HGB CONC 34 g/dl (31.0-36.0); MEAN CORPUSCULAR VOLUME 89 fL (82-100); MONOCYTES # (AUTO) 0.3 /CMM (0.1-1.30); NEUTROPHILS # (AUTO) 2.5 /CMM (1.8-8.9); NEUTROPHILS % (AUTO) 65.8 % (43.0-81.0); PLATELET COUNT (AUTO) 327 /CMM (150-450); RED BLOOD CELL COUNT(AUTO) 4.18 MIL/uL (4.0-5.2); WHITE BLOOD COUNT (AUTO) 3.9 K/uL (4.3-11.0)
[2020-02-10 11:36] LABS: CALCIUM, SERUM 9.9 mg/dL (8.5-10.1); CREATININE 0.8 mg/dL (0.6-1.3); MAGNESIUM 1.5 mg/dL (1.8-2.4); PHOSPHORUS 3.5 mg/dL (2.5-4.9); POTASSIUM 4.4 mmol/L (3.5-5.1)
--- NOTE | 2020-02-10 13:00 | NUR ---
MS/plant health care technician Dressing to sacrum changed as ordered. Buttocks red, but no open wound. Mepliex used for provention. Patient able to move around bed independently.
[2020-02-10 16:00] VITALS: BP 145/79
--- NOTE | 2020-02-10 16:42 | NUR ---
MS/RN S/B Oscar Latham NP S/B MANAGER PRODUCE - patient is discharge planning for tomorrow back to home with family.
--- NOTE | 2020-02-10 18:21 | NUR ---
MS/RN End note Remains in stable condition, no changes to plan of care. Continues to refuse blood draw and blood sugar check, however agreeable to take oral medications. Safety measures in place, call light within reach. Will continue to monitor and endorse to framing mechanic.
[2020-02-10 20:00] VITALS: BP 143/84
--- NOTE | 2020-02-10 20:30 | NUR ---
TUFTING CREELER: MET WITH PT AT BED SIDE. PT IS A/O X 1, ON RA RESPIRATIONS EVEN AND UNLABORED. PT VOICING TO GO HOME, EXPLAINED TO PT SHE WILL BE GOING BACK TO FACILITY IN AM. PER REPORT PT REFUSING SUGAR CHECK AND BLOOD DRAW. NO IV ACCESS, MD AWARE. SAFETY PRECAUTIONS FOR FALL INITIATED, CALL LIGHT IN REACH, WILL CONTINUE MONITORING PT.
--- NOTE | 2020-02-10 20:40 | NUR ---
rn notes: paged hospitalist certified pediatric nurse practitioner made aware of low magnesium level, day hospitalist aware, and explain to md that they tried doing repeat blood draw to recheck mg level however pt uncooperative and refusing to it, informed pt confused x1 but been refusing blood draws and sugar check but okay for po pill. informed pt has no iv access, due to refusal, possible dc in am, per md will check labs in am.
[2020-02-10] MEDS: INSULIN REGULAR, HUMAN 100 UNIT/ML 3 ML VIAL SQ PRN (21:22)
--- NOTE | 2020-02-10 21:22 | NUR ---
MS NOTES: PT REFUSED TO CHECK BLOOD SUGAR. PT STARTED TO BRING HER HANDS UP AND WAS ANXIOUS. PT STATED, " NO. I DO NOT WANT YOU TO DO THAT. I DON'T NEED THAT." EXPLAIN RISKS AND BENEFITS. PT STILL REFUSED. NO S/S OF RESP DISTRESS. BREATHING EVEN AND UNLABORED. CONTINUE TO MONITOR.
--- NOTE | 2020-02-11 06:00 | NUR ---
rn notes: mill representative able to draw blood for am labs
[2020-02-11 06:29] LABS: BASOPHILS # (AUTO) 0.1 /CMM (0.0-0.2); BASOPHILS % (AUTO) 1.3 % (0.0-2.0); HEMATOCRIT 35 % (33-45); HEMOGLOBIN 12.3 g/dL (11.5-14.8); LYMPHOCYTES # (AUTO) 0.9 /CMM (0.8-4.8); LYMPHOCYTES % (AUTO) 23.4 % (20.0-44.0); MEAN CORPUSCULAR HGB CONC 35 g/dl (31.0-36.0); MEAN CORPUSCULAR VOLUME 88 fL (82-100); MONOCYTES # (AUTO) 0.4 /CMM (0.1-1.30); NEUTROPHILS # (AUTO) 2.5 /CMM (1.8-8.9); NEUTROPHILS % (AUTO) 62.3 % (43.0-81.0); PLATELET COUNT (AUTO) 292 /CMM (150-450)
[2020-02-11] MEDS: BLOOD SUGAR DIAGNOSTIC 1 EACH STRIP IN SCH ×2 (06:30→11:24)
--- NOTE | 2020-02-11 06:30 | NUR ---
MS RN NOTES: REFUSED BLOOD SUGAR CHECK PT REFUSED TO CHECK BLOOD SUGAR. PT STATED, "PLEASE NO. I DON'T WANT IT." PT INCREASED AGITATION. EXPLAIN RISKS AND BENEFITS. PT STILL REFUSED X3 . NO S/S OF RESP DISTRESS. BREATHING EVEN AND UNLABORED. NO S/S OF SOB. CONTINUE TO MONITOR.
--- NOTE | 2020-02-11 06:38 | NUR ---
end of shift report: pt remains a/o x1-2, kept refusing for sugar check and iv reinsertion, tapping and hitting staff when started to hold her hands and arms. pt appears calm and comfortable at this time, selective with treatment, okay for po meds but when it comes to sugar check and iv insertion pt becoming easily agitated. md aware of the behavior. pt possible dc planning back to home, pt with 24/7 caregiver. vs remains stable, needs attended. safety precautions for fall initiated, call light in reach, hourly rounding performed. will endorse to day rn for continuity of care.
[2020-02-11 06:45] LABS: CALCIUM, SERUM 9.5 mg/dL (8.5-10.1); CREATININE 0.9 mg/dL (0.6-1.3)
--- NOTE | 2020-02-11 08:00 | NUR ---
m/s histopathology technician: initial assessment received pt in bed awake, alert and oriented x2 with confusion and disorientation to time and situation. reality orientation provided prn. instructed to call for assistance. will continue to monitor.
--- NOTE | 2020-02-11 08:25 | NUR ---
m/s remediation technician: md visit dr. small here and informed , pt still refusing iv insertions and bs check; also made aware re: mag level=1.5 with order to give mag oxide 800mg po x 1. order carried out and acknowledged.
[2020-02-11] MEDS ORDERED: MAGNESIUM OXIDE 400 MG TABLET PO ONE (08:30)
[2020-02-11] MEDS: ENSURE ENLIVE 237 ML LIQUID (VANILLA) PO SCH (09:00)
--- NOTE | 2020-02-11 09:00 | NUR ---
m/s teacher preschool: notes new order received to d'c pt home per dr. small. mary (daughter) aware and request for ambulance. case management made aware and will f/u.
[2020-02-11 09:37] VITALS: BP 151/83
[2020-02-11] MEDS: LOSARTAN POTASSIUM 50 MG TABLET PO SCH (09:37)
[2020-02-11] MEDS: GABAPENTIN 100 MG CAPSULE PO SCH (09:37)
--- NOTE | 2020-02-11 11:00 | NUR ---
m/s community mental health worker: notes case management called and arrange ambulance oyster picker at 1500. mary (daughter) notified and will be waiting at home. Addendum: 02/11/20 at 1358 by JUAN VENEGAS LVN pt made aware.
--- NOTE | 2020-02-11 12:00 | NUR ---
m/s production machine computer operator: notes lunch served. hob elevated. pending d'c home via ambulance at 1500.
--- NOTE | 2020-02-11 14:00 | NUR ---
m/s manufacturing test technician: notes turned and repositioned. kept comfortable. awaiting for ambulance to pick her at 1500. pt aware. will continue to monitor.
--- NOTE | 2020-02-11 15:10 | NUR ---
m/s manager paid: notes awaiting for ambulance to bean picker machine operator, ambulance running late. daughter made aware, spoke to her over the phone.
--- NOTE | 2020-02-11 16:10 | NUR ---
m/s cosmetic sales: notes mary (daughter) notified and informed her that ambulance is running late, but should be here before 1700. pt made aware.
--- NOTE | 2020-02-11 17:00 | NUR ---
m/s pharmacogeneticist: notes ambulance here and report given to pt. pt has no iv line. mary (daughter) notified and made aware that pt is on the way home.
--- NOTE | 2020-02-11 17:18 | NUR ---
m/s forger helper; discharged discharged home in stable condition with all d'c papers and belongings.
== END 2020-02-11 17:18 | disposition home or self-care (01) | DRG 871 ==
LOC: ER 20:53 → MED 23:56 → TELE 02-03 19:00 → MED 02-04 16:41
PROVIDERS: ADMIT Nurse Practitioner Acute Care; ATTEND Legal Medicine
PROC: 05HY33Z Insertion of Infusion Device into Upper Vein, Percutaneous Approach (ICD-10-PCS; principal; 2020-02-06)
DX: A41.9 Sepsis, unspecified organism (principal); N17.0 Acute kidney failure with tubular necrosis; G93.41 Metabolic encephalopathy; J18.9 Pneumonia, unspecified organism; D68.69 Other thrombophilia; E87.1 Hypo-osmolality and hyponatremia; N39.0 Urinary tract infection, site not specified; I12.9 Hypertensive chronic kidney disease with stage 1 through stage 4 chronic kidney disease, or unspecified chronic kidney disease; N18.9 Chronic kidney disease, unspecified; D69.6 Thrombocytopenia, unspecified; D63.8 Anemia in other chronic diseases classified elsewhere; E11.22 Type 2 diabetes mellitus with diabetic chronic kidney disease; E78.5 Hyperlipidemia, unspecified; E83.42 Hypomagnesemia; E87.6 Hypokalemia; M19.90 Unspecified osteoarthritis, unspecified site; Z96.641 Presence of right artificial hip joint; Z96.659 Presence of unspecified artificial knee joint
CPT/HCPCS: 36415; 70450-TC; 71045-TC; 71250-TC; 80048-TC; 80053-TC; 80061-TC; 80076-TC; 81000-TC; 82533; 82550-TC; 82728-TC; 82962-TC; 83615-TC; 83735-TC; 83970; 84100-TC; 84155; 84165; 84443-TC; 84550-TC; 85025-TC; 85652-TC; 86140-TC; 87040-TC; 87081-TC; 87086-TC; 93307-TC; 93971-TC; 97110-TC; 97112-TC; 97530-TC; A4216; G0378; J0692; J0696; J1815; J2405; J3475; J7030; J7050; J7060